=== PATIENT | female | born 1935 | race Caucasian/White ===

== ENCOUNTER 2018-09-16 18:24 | Inpatient (IN) | payer OTHER ==
--- NOTE | 2018-09-16 18:50 | RAD REPORT ---
EXAM DESCRIPTION: CT - Ct Stroke Brain Wo Cont - 09/16/2018 6:37 pm CLINICAL HISTORY: aphasia COMPARISON: None TECHNIQUE: Computed axial tomography of the head was obtained. IV contrast was not requested. All CT scans are performed using dose optimization technique as appropriate and may include automated exposure control or mA/KV adjustment according to patient size. FINDINGS: An intracranial bleed is not seen . The ventricles are normal in caliber. Vascular calcifications No extra-axial fluid collection is noted. Moderate to marked low-density areas within periventricular , deep and subcortical white matter likely represent ischemic changes secondary to small vessel disea se. Fluid within the sinuses/ mastoids is not seen. IMPRESSION: No acute intracranial abnormality is seen. If patient's symptoms persist MRI of the bra in would be recommended. Joe from the emergency room notified 6:45 p.m. September 16, 2018
--- NOTE | 2018-09-16 19:07 | RAD REPORT ---
EXAM DESCRIPTION: Melony Single View09/16/2018 6:50 pm CLINICAL HISTORY: Chest pain COMPARISON: None FINDINGS: The lungs appear clear of acute infiltrate. The heart is mildly enlarged. Pacemaker leads are in place. IMPRESSION: No acute abnormalities displayed
[2018-09-16 19:16] LABS: Absolute Monocytes 0.5 K/uL (0.1-1.3); Absolute Neutrophil 9.4 K/uL (1.8-8.0); Basophils % 0.8 % (0-1.3); Eosinophils % 0.7 % (0-4.4); Hematocrit 26.9 % (36.0-45.0); Lymphocytes % 8.9 % (15.3-44.8); MPV 8.1 fL (7.6-11.3); Monocytes % 4.8 % (3.3-12.3); RBC Red Blood Cell Count 2.86 M/uL (3.86-4.86)
[2018-09-16 19:27] LABS: Potassium 4.3 mmol/L (3.5-5.1)
[2018-09-16 19:29] LABS: Protime INR 0.97
--- NOTE | 2018-09-16 21:02 | RAD REPORT ---
EXAM DESCRIPTION: CTHead angio09/16/2018 8:32 pm CLINICAL HISTORY: Right-sided weakness /aphasia COMPARISON: None TECHNIQUE: CT angiogram of the head was obtained. 3D MIPS reconstruction performed. All CT scans are performed using dose optimization technique as appropriate and may include automated exposure control or mA/KV adjustment according to patient size. FINDINGS: Coarse calcifications are present within the distal internal carotid arteries bilaterally. The basilar, anterior cerebral, middle cerebral and posterior cerebral arteries are normal caliber. A n aneurysm is not seen. A significant stenosis is not noted. IMPRESSION: A significant stenosis/ occlusion is not seen
--- NOTE | 2018-09-16 21:02 | RAD REPORT ---
EXAM DESCRIPTION: Mila Angio09/16/2018 8:28 pm CLINICAL HISTORY: Syncope Right-sided weakness /aphasia COMPARISON: None TECHNIQUE: 50 cc Isovue 370 was administered intravenously. 3D MIP reconstruction performed All CT scans are performed using dose optimization technique as appropriate and may include automated exposure control or mA/KV adjustment according to patient size. FINDINGS: Severe calcified plaque is present within the right carotid bulb. . Moderate plaque is present within the right external carotid artery. Mild plaque is present within common carotid and left internal carotid arteries. The left vertebral artery is dominant. Distal left vertebral artery is calcified. IMPRESSION: Severe stenosis right carotid bulb. NASCET criteria used. Mild 0-49% stenosis Moderate 50-69% stenosis Severe 70-99% stenosis
--- NOTE | 2018-09-16 21:55 | EDPHYS ---
Physician Documentation [facility] Name: Tony Proctor Age: 83 yrs Sex: Female : 1935 Arrival Date: 09/16/2018 Time: 18:25 Bed 5 Private MD: ED Physician Kavon Verde HPI: 09/16 18:28 This 83 yrs old Female presents to ER via Unassigned with complaints of S/S kdr of Possible Stroke, Fall Injury. 18:28 The patient's problem is reported as weakness, that is generalized, Per EMS family kdr reports episodes of right sided weakness and the patient had a transient episode of Right sided weakness during transport. It was completely resolved on arrival to the ED. She relates that she has been generally weak today. She has no other focal c/o at this time and has an NIH SS of ) on arrival. Onset: The symptoms/episode began/occurred at an unknown time. Duration: The episodes are intermittent. Context: the episode(s) was witnessed. The symptoms are alleviated by nothing. The symptoms are aggravated by moving head, changing position. Associated signs and symptoms: Pertinent positives: weakness. Severity of symptoms: At their worst the symptoms were mild moderate just prior to arrival, in the emergency department the symptoms are unchanged. The patient has experienced similar episodes in the past, several times, The patient states that she has had numerous falls today. States she gets weak and "crumples" to the floor. Historical: - Allergies: 18:42 Phenergan; aa5 - PMHx: 18:42 Myocardial infarction; TIA; Thyroid problem; aa5 - PSHx: 18:42 pacemaker; Hysterectomy; Thyroidectomy; aa5 - Immunization history:: Adult Immunizations up to date, Flu vaccine is up to date. - Ebola Screening: : No symptoms or risks identified at this time. - Social history:: Smoking status: Patient/guardian denies using tobacco, Patient/guardian denies using alcohol, street drugs. ROS: 18:28 Constitutional: Negative for fever, chills, and weight loss, Eyes: Negative for injury, kdr pain, redness, and discharge, ENT: Negative for injury, pain, and discharge, Neck: Negative for injury, pain, and swelling, Cardiovascular: Negative for chest pain, palpitations, and edema, Respiratory: Negative for shortness of breath, cough, wheezing, and pleuritic chest pain, Abdomen/GI: Negative for abdominal pain, nausea, vomiting, diarrhea, and constipation, Back: Negative for injury and pain, : Negative for injury, bleeding, discharge, and swelling, MS/Extremity: Negative for injury and deformity, Skin: Negative for injury, rash, and discoloration, Psych: Negative for depression, anxiety, suicide ideation, homicidal ideation, and hallucinations, Allergy/Immunology: Negative for hives, rash, and allergies, Endocrine: Negative for neck swelling, polydipsia, polyuria, polyphagia, and marked weight changes, Hematologic/Lymphatic: Negative for swollen nodes, abnormal bleeding, and unusual bruising. 18:28 Neuro: Positive for weakness, Patient states general but EMS/Family report right sided with some speech impairment . Exam: 18:28 Constitutional: This is a well developed, well nourished patient who is awake, alert, kdr and in no acute distress. Head/Face: Normocephalic, atraumatic. Eyes: Pupils equal round and reactive to light, extra-ocular motions intact. Lids and lashes normal. Conjunctiva and sclera are non-icteric and not injected. Cornea within normal limits. Periorbital areas with no swelling, redness, or edema. ENT: Nares patent. No nasal discharge, no septal abnormalities noted. Tympanic membranes are normal and external auditory canals are clear. Oropharynx with no redness, swelling, or masses, exudates, or evidence of obstruction, uvula midline. Mucous membranes moist. Neck: Trachea midline, no thyromegaly or masses palpated, and no cervical lymphadenopathy. Supple, full range of motion without nuchal rigidity, or vertebral point tenderness. No Meningismus. Chest/axilla: Normal chest wall appearance and motion. Nontender with no deformity. No lesions are appreciated. Cardiovascular: Regular rate and rhythm with a normal S1 and S2. No gallops, murmurs, or rubs. Normal PMI, no JVD. No pulse deficits. Respiratory: Lungs have equal breath sounds bilaterally, clear to auscultation and percussion. No rales, rhonchi or wheezes noted. No increased work of breathing, no retractions or nasal flaring. Abdomen/GI: Soft, non-tender, with normal bowel sounds. No distension or tympany. No guarding or rebound. No evidence of tenderness throughout. Back: No spinal tenderness. No costovertebral tenderness. Full range of motion. Skin: Warm, dry with normal turgor. Normal color with no rashes, no lesions, and no evidence of cellulitis. She has minor abrasions on her legs MS/ Extremity: Pulses equal, no cyanosis. Neurovascular intact. Full, normal range of motion. Neuro: Awake and alert, GCS 15, oriented to person, place, time, and situation. Cranial nerves II-XII grossly intact. Motor strength 5/5 in all extremities. Sensory grossly intact. Cerebellar exam normal. Normal gait. Psych: Awake, alert, with orientation to person, place and time. Behavior, mood, and affect are within normal limits. 21:55 Radiologist reports: right bulb stenosis. no acute findings on CT. ps1 Vital Signs: 18:35 BP 103 / 76; Pulse 77; Resp 16 S; Temp 97.7(O); Pulse Ox 100% on R/A; Pain 6/10; aa5 19:00 BP 139 / 57; Pulse 74; Resp 15; Pulse Ox 99% ; rr5 19:35 BP 152 / 51; Pulse 77; Resp 12; Pulse Ox 98% ; rr5 20:30 BP 141 / 70; Pulse 75; Resp 16; Pulse Ox 99% ; rr5 21:30 BP 160 / 65; Pulse 79; Resp 17; Pulse Ox 99% ; rr5 22:30 BP 160 / 57; Pulse 92; Resp 19; Pulse Ox 98% ; rr5 23:30 BP 152 / 63; Pulse 100; Resp 17; Pulse Ox 99% ; rr5 03/07 00:00 BP 163 / 60; Pulse 87; Resp 17; Temp 98; Pulse Ox 100% ; rr5 NIH Stroke Scale Scores: 0306 18:25 NIHSS Score: 0 aa5 18:28 NIHSS Score: 0 kdr MDM: 18:28 Data reviewed: vital signs, nurses notes. kdr 19:43 ED course: patient signed out to me at shift change by Dr. Verde. NIH 0. Reported ps1 syncope vs seizure vs stroke vs Marquise's. Reportedly slumped over and appeared to become syncopal then had aphasia and right UE weakness now completely resolved. TPA not given 2/2 improving NIH. 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 . 19:52 Patient medically screened. ps1 20:09 ED course: Notified that patient has a pacemaker that is not compatible with MRI. Will ps1 order CTA head and neck. . 09/16 18:32 Order name: Basic Metabolic Panel; Complete Time: 19:52 09/16 18:32 Order name: CBC with Diff; Complete Time: 19:52 09/16 18:32 Order name: Protime (+inr); Complete Time: 19:52 09/16 18:32 Order name: Ptt, Activated; Complete Time: 19:52 09/16 18:32 Order name: CT Stroke Brain w/o Contrast; Complete Time: 19:00 09/16 18:32 Order name: Stroke CXR 1 View; Complete Time: 19:52 09/16 18:32 Order name: EKG; Complete Time: 18:33 09/16 18:32 Order name: Accucheck; Complete Time: 18:33 09/16 19:39 Order name: MRA Head Wo Cont EDMS 09/16 19:39 Order name: Brain W/Wo Cont EDMS 09/16 19:39 Order name: MRA Neck W/Wo Cont EDMS 09/16 20:12 Order name: CT Neck Angio; Complete Time: 21:18 ps1 09/16 20:12 Order name: CT Head Angio; Complete Time: 21:18 ps1 09/16 18:32 Order name: Cardiac monitoring; Complete Time: 18:41 09/16 18:32 Order name: EKG - Nurse/Tech; Complete Time: 19:01 09/16 18:32 Order name: IV Saline Lock; Complete Time: 18:41 09/16 18:32 Order name: Labs collected and sent; Complete Time: 18:41 09/16 18:32 Order name: NPO; Complete Time: 18:41 09/16 18:32 Order name: O2 Per Protocol; Complete Time: 18:41 09/16 18:32 Order name: O2 Sat Monitoring; Complete Time: 18:41 09/16 18:32 Order name: Stroke Swallow Screen; Complete Time: 19:01 aa5 Administered Medications: No medications were administered Point of Care Testing: Blood Glucose: 18:33 Blood Glucose: 144 mg/dL; bp Ranges: Critical Glucose Levels:Adult <50 mg/dl or >400 mg/dl <40 mg/dl or >180 mg/dl Disposition: 09/16/18 21:55 Hospitalization ordered by Fransico Thurston for Inpatient Admission. Preliminary diagnosis is TIA. - Bed requested for Telemetry/MedSurg (Inpatient). - Status is Inpatient Admission. rr5 - Condition is Stable. - Problem is new. - Symptoms are resolved. UTI on Admission? No NIH Stroke Scale - NIH Stroke Score Date: 09/16/2018 Time: 18:25 Total Score = 0 1a. Level of Consciousness (LOC) - 0(Alert) 1b. Level of Consciousness (LOC) (Year \\T\\ Age) - 0(Both) 1c. LOC Commands (Open \\T\\ Closes Eyes/Protohistorian) - 0(Both) 2. Best Gaze (Lateral Gaze Paresis) - 0(Normal) 3. Visual Field Loss - 0(No visual loss) 4. Facial Palsy - 0(Normal) 5a. Left Arm: Motor (10-second hold) - 0(No drift) 5b. Right Arm: Motor (10-second hold) - 0(No drift) 6a. Left Leg: Motor (5-second hold - always test supine) - 0(No drift) 6b. Right Leg: Motor (5-second hold - always test supine) - 0(No drift) 7. Limb Ataxia (finger/nose \\T\\ heel/ryan - test with eyes open) - 0(Absent) 8. Sensory Loss (pinprick arms/legs/face) - 0(Normal) 9. Best Language: Aphasia (description/naming/reading) - 0(No aphasia) 10. Dysarthria (speech clarity - read or repeat words) - 0(Normal) 11. Extinction and Inattention (visual/tactile/auditory/spatial/personal) - 0(No abnormality) Initials: aa5 NIH Stroke Scale - NIH Stroke Score Date: 09/16/2018 Time: 18:28 Total Score = 0 1a. Level of Consciousness (LOC) - 0(Alert) 1b. Level of Consciousness (LOC) (Year \\T\\ Age) - 0(Both) 1c. LOC Commands (Open \\T\\ Closes Eyes/Protohistorian) - 0(Both) 2. Best Gaze (Lateral Gaze Paresis) - 0(Normal) 3. Visual Field Loss - 0(No visual loss) 4. Facial Palsy - 0(Normal) 5a. Left Arm: Motor (10-second hold) - 0(No drift) 5b. Right Arm: Motor (10-second hold) - 0(No drift) 6a. Left Leg: Motor (5-second hold - always test supine) - 0(No drift) 6b. Right Leg: Motor (5-second hold - always test supine) - 0(No drift) 7. Limb Ataxia (finger/nose \\T\\ heel/ryan - test with eyes open) - 0(Absent) 8. Sensory Loss (pinprick arms/legs/face) - 0(Normal) 9. Best Language: Aphasia (description/naming/reading) - 0(No aphasia) 10. Dysarthria (speech clarity - read or repeat words) - 0(Normal) 11. Extinction and Inattention (visual/tactile/auditory/spatial/personal) - 0(No abnormality) Initials: kdr Signatures: Dispatcher [employer] EDMO Kavon Verde MD MD kdr Leigha Downs RN RN aa5 Debi Hein RN RN cg Bryan Moore MD MD ps1 Parish Stewart RN RN rr5 Corrections: (The following items were deleted from the chart) 19:39 19:02 MR STROKE PROTOCOL+MRI.RAD.BRZ ordered. [facility] 23:51 21:55 Hospitalization Ordered by Fransico Thurston MD for Inpatient Admission. cg Preliminary diagnosis is TIA. Bed requested for Telemetry/MedSurg (Inpatient). Status is Inpatient Admission. Condition is Stable. Problem is new. Symptoms are resolved. UTI on Admission? No. ps1 09/17 01:41 06 23:51 09/16/2018 21:55 Hospitalization Ordered by Fransico Thurston MD for rr5 Inpatient Admission. Preliminary diagnosis is TIA. Bed requested for Telemetry/MedSurg (Inpatient). Status is Inpatient Admission. Condition is Stable. Problem is new. Symptoms are resolved. UTI on Admission? No. cg
--- NOTE | 2018-09-16 21:55 | ER ---
Nurse's Notes [facility] Name: Tony Proctor Age: 83 yrs Sex: Female : 1935 Arrival Date: 09/16/2018 Time: 18:25 Bed 5 Private MD: Diagnosis: TIA Presentation: 09/16 18:25 Presenting complaint: Patient states: "I have fallen several times today about 5 to 6 aa5 times". Pt states "When I fell my knees just gave out and I fell straight to my butt and I couldn't get up, I had to crawl through the house". EMS reports pt had right sided paralysis and expressive aphasia at 1730 and resolved prior to scene arrival, pt also had bowel incontinence during episode. 18:25 Acuity: CARMELINA 2 aa5 18:25 Transition of care: patient was not received from another setting of care. aa5 18:25 Method Of Arrival: EMS: [facility] aa5 18:35 The patients blood glucose was checked before arriving to the hospital and was found to aa5 be normal. Onset of symptoms was September 16, 2018. Risk Assessment: Do you want to hurt yourself or someone else? Patient reports no desire to harm self or others. Initial Sepsis Screen: Does the patient meet any 2 criteria? No. Patient's initial sepsis screen is negative. Does the patient have a suspected source of infection? No. Patient's initial sepsis screen is negative. Care prior to arrival: IV initiated. 20 GA, in the left antecubital area, Glucose check: 110. 19:30 No acute neurological deficit is noted. rr5 Triage Assessment: 19:00 The onset of the patients symptoms was September 16, 2018 at 17:30. rr5 19:00 General: Appears in no apparent distress. comfortable, Behavior is calm, cooperative, rr5 appropriate for age. Stroke Activation: Symptom onset < 3 hours Physician: Stroke Attending; Name: ; Notified At: ; Arrived At: Physician: Chief Stroke Resident; Name: ; Notified At: ; Arrived At: Physician: Stroke Resident; Name: ; Notified At: ; Arrived At: Physician: ED Attending; Name: ; Notified At: ; Arrived At: Physician: ED Resident; Name: ; Notified At: ; Arrived At: Historical: - Allergies: 18:42 Phenergan; aa5 - PMHx: 18:42 Myocardial infarction; TIA; Thyroid problem; aa5 - PSHx: 18:42 pacemaker; Hysterectomy; Thyroidectomy; aa5 - Immunization history:: Adult Immunizations up to date, Flu vaccine is up to date. - Ebola Screening: : No symptoms or risks identified at this time. - Social history:: Smoking status: Patient/guardian denies using tobacco, Patient/guardian denies using alcohol, street drugs. Screenin:00 Abuse screen: Denies threats or abuse. Denies injuries from another. Nutritional rr5 screening: No deficits noted. Tuberculosis screening: No symptoms or risk factors identified. Fall Risk Fall in past 12 months (25 points). IV access (20 points). Total Nicolas Fall Scale indicates Low Risk Score (25-44 pts). Fall prevention measures have been instituted. Side Rails Up X 2 Frequent Obs/Assesments occuring Family Present and informed to notify staff if they need to leave bedside As available Patient and Family Educated on Fall Prevention Program and strategies. Assessment: 18:25 VAN Scoring: Arm Drift: Patients demonstrates NO arm weakness. Patient is VAN Negative. aa5 18:25 General: Appears comfortable, Behavior is calm, cooperative. Pain: Complains of pain in aa5 neck and back Pain does not radiate. Pain currently is 6 out of 10 on a pain scale. Quality of pain is described as aching, Pain began today Is continuous. Neuro: Level of Consciousness is awake, alert, obeys commands, Oriented to person, place, time, situation, Cutting Department Supervisor are weak bilaterally Moves all extremities. Speech is normal, Facial symmetry appears normal, Pupils are PERRLA, Denies paresthesias numbness Reports generalized weakness since this morning. . Cardiovascular: Heart tones S1 S2 present Rhythm is sinus rhythm. Respiratory: Airway is patent Respiratory effort is even, unlabored, Respiratory pattern is regular, symmetrical. GI: No signs and/or symptoms were reported involving the gastrointestinal system. : Reports bowel incontinence episode today. EENT: No signs and/or symptoms were reported regarding the EENT system. Derm: Skin is pink, warm \\T\\ dry. Small skin tear noted to right ryan, no active bleeding noted. Musculoskeletal: Range of motion: intact in all extremities. 18:28 Reassessment: Pt taken to CT via stretcher . aa5 18:42 T-PA (Activase) Screening: Indications: No evidence of intracranial hemorrhage or CT of aa5 head and no evidence of peripheral hemorrhage or recent CVA: Yes. 18:47 The patient has not been NPO before screening. The patient is alert, and able to follow aa5 commands. The patient does not exhibit slurred or garbled speech. The patient is not exhibiting difficulty speaking. The patient does not exhibit difficulty understanding words. The patient is able to swallow own secretions with no drooling or need for suction. Patient tolerated one teaspoon of water. No drooling, immediate coughing, gurgling, or clearing of the throat was noted. The patient tolerated 90mL of water. No drooling, immediate coughing, gurgling, or clearing of the throat was noted. The patient passed the bedside swallow screening. Oral medications may be given as ordered. Contact Physician for further diet orders. Provider notified of bedside swallow screening results: Kavon Verde MD. 20:10 Reassessment: [facility] staff verified for the pacemaker provider. patient cannot rr5 proceed to MRI, pacemaker is not compatible. ED provider aware. 21:45 Reassessment: Patient appears in no apparent distress at this time. Patient is alert, rr5 oriented x 3, equal unlabored respirations, skin warm/dry/pink. no complaints made. patient is for transfer to other facility the patient and operator supply agreed. Patient states feeling better. Patient states symptoms have improved. 22:30 Reassessment: Patient appears in no apparent distress at this time. Patient is alert, rr5 oriented x 3, equal unlabored respirations, skin warm/dry/pink. awaiting for room assignment, no complaints made. 23:30 Reassessment: Patient appears in no apparent distress at this time. dr. hurst rr5 informed diaper changed black tarry stool noted. 09/17 00:55 Reassessment: Patient appears in no apparent distress at this time. Patient is alert, rr5 oriented x 3, equal unlabored respirations, skin warm/dry/pink. no complaints made. asleep on bed comfortably. Vital Signs: 09/16 18:35 BP 103 / 76; Pulse 77; Resp 16 S; Temp 97.7(O); Pulse Ox 100% on R/A; Pain 6/10; aa5 19:00 BP 139 / 57; Pulse 74; Resp 15; Pulse Ox 99% ; rr5 19:35 BP 152 / 51; Pulse 77; Resp 12; Pulse Ox 98% ; rr5 20:30 BP 141 / 70; Pulse 75; Resp 16; Pulse Ox 99% ; rr5 21:30 BP 160 / 65; Pulse 79; Resp 17; Pulse Ox 99% ; rr5 22:30 BP 160 / 57; Pulse 92; Resp 19; Pulse Ox 98% ; rr5 23:30 BP 152 / 63; Pulse 100; Resp 17; Pulse Ox 99% ; rr5 03 00:00 BP 163 / 60; Pulse 87; Resp 17; Temp 98; Pulse Ox 100% ; rr5 NIH Stroke Scale Scores: 09/16 18:25 NIHSS Score: 0 aa5 18:28 NIHSS Score: 0 kdr ED Course: 18:25 Patient arrived in ED. ds1 18:25 Arm band placed on Patient placed in an exam room, on a stretcher. aa5 18:25 Patient has correct armband on for positive identification. Placed in gown. Bed in low aa5 position. Side rails up X2. 18:27 Initial lab(s) drawn, by ED staff, sent to lab. aa5 18:27 No provider procedures requiring assistance completed. Maintain EMS IV. aa5 18:28 Kavon Verde MD is Attending Physician. kdr 18:31 Charles Benites, BRANDY is Primary Nurse. bp 18:36 Triage completed. aa5 18:37 CT Stroke Brain w/o Contrast In Process Unspecified. EDMS 18:40 Primary Nurse role handed off by Charles Benites, BRANDY aa5 18:40 Leigha Downs, BRANDY is Primary Nurse. aa5 18:51 Stroke CXR 1 View In Process Unspecified. EDMS 19:09 Report given to Parish RN and Jen RN. aa5 20:[address] jg6 20:29 CT completed. Patient tolerated procedure well. Patient moved back from CT. nj 20:29 CT Neck Angio In Process Unspecified. EDMS 20:29 CT Head Angio In Process Unspecified. EDMS 21:55 Fransico Thurston MD is Hospitalizing Provider. ps1 09/17 00:30 Patient admitted, IV remains in place. intact, No redness/swelling at site. rr5 Administered Medications: No medications were administered Point of Care Testing: Blood Glucose: 09/16 18:33 Blood Glucose: 144 mg/dL; bp Ranges: Intake: 23:25 dr. hurst aware black tarry stool rr5 Output: 23:25 Other: 1 (Diapers) ; Total: 0ml. rr5 23:25 dr. hurst aware black tarry stool rr5 Outcome: 21:55 Decision to Hospitalize by Provider. ps1 09/17 00:29 Admitted to Med/surg accompanied by tech, via stretcher, room 231, with chart, Report rr5 called to brett Condition: stable Instructed on the need for admit. 01:41 Patient left the ED. rr5 NIH Stroke Scale - NIH Stroke Score Date: 09/16/2018 Time: 18:25 Total Score = 0 1a. Level of Consciousness (LOC) - 0(Alert) 1b. Level of Consciousness (LOC) (Year \\T\\ Age) - 0(Both) 1c. LOC Commands (Open \\T\\ Closes Eyes/Geology Scientist) - 0(Both) 2. Best Gaze (Lateral Gaze Paresis) - 0(Normal) 3. Visual Field Loss - 0(No visual loss) 4. Facial Palsy - 0(Normal) 5a. Left Arm: Motor (10-second hold) - 0(No drift) 5b. Right Arm: Motor (10-second hold) - 0(No drift) 6a. Left Leg: Motor (5-second hold - always test supine) - 0(No drift) 6b. Right Leg: Motor (5-second hold - always test supine) - 0(No drift) 7. Limb Ataxia (finger/nose \\T\\ heel/ryan - test with eyes open) - 0(Absent) 8. Sensory Loss (pinprick arms/legs/face) - 0(Normal) 9. Best Language: Aphasia (description/naming/reading) - 0(No aphasia) 10. Dysarthria (speech clarity - read or repeat words) - 0(Normal) 11. Extinction and Inattention (visual/tactile/auditory/spatial/personal) - 0(No abnormality) Initials: aa5 NIH Stroke Scale - NIH Stroke Score Date: 09/16/2018 Time: 18:28 Total Score = 0 1a. Level of Consciousness (LOC) - 0(Alert) 1b. Level of Consciousness (LOC) (Year \\T\\ Age) - 0(Both) 1c. LOC Commands (Open \\T\\ Closes Eyes/Geology Scientist) - 0(Both) 2. Best Gaze (Lateral Gaze Paresis) - 0(Normal) 3. Visual Field Loss - 0(No visual loss) 4. Facial Palsy - 0(Normal) 5a. Left Arm: Motor (10-second hold) - 0(No drift) 5b. Right Arm: Motor (10-second hold) - 0(No drift) 6a. Left Leg: Motor (5-second hold - always test supine) - 0(No drift) 6b. Right Leg: Motor (5-second hold - always test supine) - 0(No drift) 7. Limb Ataxia (finger/nose \\T\\ heel/ryan - test with eyes open) - 0(Absent) 8. Sensory Loss (pinprick arms/legs/face) - 0(Normal) 9. Best Language: Aphasia (description/naming/reading) - 0(No aphasia) 10. Dysarthria (speech clarity - read or repeat words) - 0(Normal) 11. Extinction and Inattention (visual/tactile/auditory/spatial/personal) - 0(No abnormality) Initials: kdr Signatures: Dispatcher [employer] EDMS Kavon Verde MD MD kdr Natalie Pino ds1 Leigha Downs, RN RN aa5 Neo Longo Brian, RN RN bp Bryan Moore MD MD ps1 Martina Hein6 Parish Stewart RN RN rr5
[2018-09-17] MEDS ORDERED: SODIUM CHLORIDE 0.9% 10ML INJ IV PRN (00:59)
[2018-09-17] MEDS ORDERED: ONDANSETRON 4 MG/2 ML VIAL IV PRN (00:59)
[2018-09-17] MEDS: NA CHLORIDE 0.9% 1,000 ML IV SCH ×3 (01:27→20:59)
[2018-09-17 01:36] VITALS: BMI 19.1
[2018-09-17] MEDS: HYDRALAZINE HCL 10 MG TABLET PO PRN ×2 (03:29→21:16)
--- NOTE | 2018-09-17 04:39 | P.HP ---
Certification for Inpatient Patient admitted to: Observation With expected LOS: <2 Midnights Practitioner: I am a practitioner with admitting privileges, knowledge of patient current condition, hospital course, and medical plan of care. Services: Services provided to patient in accordance with Admission requirements found in Title 42 Section 412.3 of the Code of Federal Regulations Patient History Date of Service: 09/17/18 Reason for admission: recurrent fall, possible TIA, melena History of Present Illness: Ms Proctor is an 83 years old woman with history of HTN, TIA, who report that she fell about 5-6 times today, unable to state wether she loss her conscious or not, she is mildly confused. She states that her right knee gave up. No history of fever or chills. When EMS arrived, found the patient with right side hemiparesis and expressive aphasia, but all her symptoms were resolved before arrive to ED. CT/CTA head shows no acute abnormalities. CTA neck report severe stenosis on right carotid bulb. Also during her stay in ED it was found that she has melena. Her hgb is 9.3 mg/dl, last value documented was in 2014 about 13.2 mg/dl. Allergies promethazine [From Phenergan] Allergy (Verified 09/17/18 01:42) Itching/Hives/Rash Home medications list reviewed: Yes - Past Medical/Surgical History Has patient received pneumonia vaccine in the past: Yes Diabetic: No -: HTN -: [place] -: TIA -: Hyperthyroidism -: Pacemaker placement -: Hysterectomy -: Thyroidectomy - Family History Mother -: Cancer Notes: colon CA Father -: Cancer Notes: liver CA son -: Cancer Notes: liver CA - Social History Smoking Status: Never smoker Alcohol use: No CD- Drugs: No Caffeine use: Yes Place of Residence: Home Review of Systems 10-point ROS is otherwise unremarkable Physical Examination - Vital Signs Temperature: 98.5 F Blood Pressure: 179/74 Pulse: 85 Respirations: 18 Pulse Ox (%): 100 - Physical Exam General: Alert, In no apparent distress, Confused HEENT: Atraumatic, PERRLA, Mucous membr. moist/pink, EOMI, Sclerae nonicteric Neck: Supple, 2+ carotid pulse no bruit, No LAD, Without JVD or thyroid abnormality Respiratory: Clear to auscultation bilaterally, Normal air movement Cardiovascular: Regular rate/rhythm, Normal S1 S2 Gastrointestinal: Normal bowel sounds, No tenderness Musculoskeletal: No tenderness Integumentary: No rashes Neurological: Normal speech, Normal strength at 5/5 x4 extr, Normal tone, Normal affect Lymphatics: No axilla or inguinal lymphadenopathy - Studies Laboratory Data (last 24 hrs) 09/16/18 19:02: PT 11.5, INR 0.97, APTT 26.7 09/16/18 19:02: WBC 11.1 H, Hgb 9.3 L, Hct 26.9 L, Plt Count 518 H 09/16/18 19:02: Sodium 137, Potassium 4.3, BUN 43 H, Creatinine 1.35 H, Glucose 122 H Assessment and Plan - Problems (Diagnosis) (1) Recurrent falls Current Visit: Yes Status: Acute (2) TIA (transient ischemic attack) Current Visit: Yes Status: Acute (3) GIB (gastrointestinal bleeding) Current Visit: Yes Status: Acute (4) CKD (chronic kidney disease) Current Visit: Yes Status: Acute Qualifiers: Chronic kidney disease stage: stage 3 (moderate) Qualified Code(s): N18.3 - Chronic kidney disease, stage 3 (moderate) (5) Anemia Current Visit: Yes Status: Acute Qualifiers: Anemia type: unspecified type Qualified Code(s): D64.9 - Anemia, unspecified - Plan The patient will be admitted to the hospital due to recurrent falls, possible TIA, unfortunately the patient has pacemaker placement, not able to perform MRI. She has also melena with anemia. Will Keep the patient NPO, order IV fluids , IV protonix, (hold anticoagulants and antiplatelets until GI evaluation. Consult Dr Ross and Dr Cullen. - Advance Directives Does patient have a Living Will: Yes Does patient have a Durable POA for Healthcare: Yes - Code Status/Comfort Care Code Status Assessed: Yes Code Status: Full Code
--- NOTE | 2018-09-17 05:54 | EKG ---
Test Date: 2018-09-16 Test Time: 18:44:31 Hris Administrator: BARRERA MEASUREMENT RESULTS: Intervals: Rate: 83 MO: 170 QRSD: 68 QT: 382 QTc: 448 [place]: P: 83 MO: 170 QRS: 50 T: 73 INTERPRETIVE STATEMENTS: Normal sinus rhythm Normal ECG Compared to ECG 06/15/2002 08:54:00 No significant changes Electronically Signed On 09-17-18 05:53:22 [employer]ARCH MANGLE TENDER by César Roberts
[2018-09-17 06:59] LABS: Absolute Lymphocytes (CBC) 1.4 K/uL (0.7-4.9); Absolute Monocytes 0.6 K/uL (0.1-1.3); Absolute Neutrophil 6.7 K/uL (1.8-8.0); Basophils % 1.2 % (0-1.3); Eosinophils % 2.3 % (0-4.4); Hematocrit 25.6 % (36.0-45.0); Lymphocytes % 15.4 % (15.3-44.8); MPV 8.1 fL (7.6-11.3); Monocytes % 6.6 % (3.3-12.3); RBC Red Blood Cell Count 2.71 M/uL (3.86-4.86)
[2018-09-17 07:04] LABS: Potassium 3.8 mmol/L (3.5-5.1)
--- NOTE | 2018-09-17 08:39 | RAD REPORT ---
EXAM DESCRIPTION: US - CP - 09/17/2018 8:27 am CLINICAL HISTORY: Carotid stenosis COMPARISON: CT angio neck September 16, 2018 TECHNIQUE: Real-time sonographic evaluation of both carotid systems was performed. Gomez scale and Do ppler interrogation were performed with waveform tracing bilaterally. FINDINGS: Normal high resistance waveforms are noted in both external carotid arteries. The common c arotid arteries and internal carotid arteries show normal low resistance waveforms. Patient shows very pronounced calcified plaquing change in the right carotid bulb extending into the proximal portions of the right internal carotid artery. Significant luminal narrowing is evident on v isual inspection. Calcified plaquing in the left carotid bulb is present without significant luminal narrowing. No dissection is identified. Right internal carotid artery peak systolic velocity reaches 213 cm/second with a 53 cm/second end-diastolic velocity. A 2.5 right-side ICA/CCA ratio was obtained . Right external carotid velocity reached 285 cm/second although an external stenosis is generally no t clinically significant. Left-sided carotid peak velocity reaches 117 cm/seconds. A 1.1 left ICA/ CC A ratio was obtained. Left external carotid velocity is elevated at 222 cm/second. Antegrade flow seen in both vertebral arteries. Velocity values and ratios were recorded and are retained in the patient's imaging records. IMPRESSION: Significant densely calcified plaquing changes in the right carotid bulb and proximal IC A. Stenosis is estimated at 80- 90%. Left-sided carotid bulb calcified plaquing changes not causing significant stenosis. Bilateral external carotid stenoses. External carotid stenoses are generally not clinically significa nt.
[2018-09-17] MEDS ORDERED: KCL 20 MEQ/100 mL IVPB 20 MEQ/100 ML BAG IV SCH (09:00)
[2018-09-17] MEDS: PANTOPRAZOLE 40 MG INJ IVP SCH ×2 (09:03→21:15)
--- NOTE | 2018-09-17 12:00 | ECHO ---
HEIGHT: 5 ft 3 in WEIGHT: 107 lb 12.8 oz DATE OF STUDY: 09/17/[address]: Fransico Barahona MD 2-DIMENSIONAL: YES M.MODE: YES DOPPLER: YES COLOR FLOW: YES TDS: NO PORTABLE: NO DEFINITY: NO BUBBLE STUDY: NO DIAGNOSIS: RECURRENT FALL; HYPERTENSION CARDIAC HISTORY: CATHERIZATION: NO SURGERY: NO PROSTHETIC VALVE: NO PACEMAKER: YES MEASUREMENTS (cm) DIASTOLIC (NORMALS) SYSTOLIC (NORMALS) IVSd 0.8 (0.6-1.2) LA Diam 2.9 (1.9-4.0) LVEF 51% LVIDd 3.6 (3.5-5.7) LVIDs 2.7 (2.0-3.5) %FS 25% LVPWd 1.0 (0.6-1.2) Ao Diam 2.7 (2.0-3.7) 2 DIMENSIONAL ASSESSMENT: RIGHT ATRIUM: NORMAL LEFT ATRIUM: NORMAL RIGHT VENTRICLE: NORMAL LEFT VENTRICLE: NORMAL TRICUSPID VALVE: NORMAL MITRAL VALVE: MITRAL ANNULAR CALCIFICATION PULMONIC VALVE: NORMAL AORTIC VALVE: SCLEROSIS PERICARDIAL EFFUSION: NONE AORTIC ROOT: NORMAL LEFT VENTRICULAR WALL MOTION: NORMAL DOPPLER/COLOR FLOW: TRACE TRICUSPID REGURGITATION. COMMENTS: NORMAL LEFT VENTRICULAR SIZE AND FUNCTION. NO WALL MOTION ABNORMALITY. MITRAL ANNULAR CALCIFICATION. AORTIC SCLEROSIS. TECHNOLOGIST: Darek TAI
[2018-09-17] MEDS ORDERED: ASPIRIN EC 81 MG TAB PO SCH (16:34)
[2018-09-17] MEDS ORDERED: CLOPIDOGREL 75 MG TABLET PO SCH (16:34)
--- NOTE | 2018-09-17 18:42 | PN ---
Date of Progress Note: 09/17/2018 Subjective: The patient seen and examined, chart reviewed and case discussed with RN and Dr. Cullen. The patient reports weakness in her left leg that seems to give out. Denies any chronic back pain or recent trauma. The patient does use a walker at home. Medication: List reviewed. Code Status: Full. Objective: Vital Signs: Temperature 98, heart rate 82, blood pressure 158/69, respirations 18, O2 98% on room air. General: awake, alert, oriented x3. Elderly female, ill-appearing. CV: S1, S2. Regular rate and rhythm. Peripheral pulses present. Respiratory: Clear to auscultation bilaterally. No wheezing or stridor. No use of accessory muscles Gastrointestinal: Abdomen is soft, nontender, nondistended. Positive bowel sounds. No guarding or rigidity. Extremities: No clubbing, cyanosis, or edema. Neuro: Cranial nerves 2 through 12 intact grossly. No focal neurological deficit. Speech is normal. Strength is symmetric in bilateral upper and lower extremities. Sensation intact to light touch. Laboratory Data: WBC 9, H and H 9.1, 25.6; platelets 493. Sodium 141, potassium 3.8, chloride 108, CO2 26, BUN 34, creatinine 1.19, glucose 101, calcium 8.4. Occult blood was negative. Echocardiogram, EF 51%. No wall motion abnormality. Carotid artery ultrasound shows densely calcified plaquing changes in the right carotid bulb and proximal ICA stenosis estimated at 80-90% . Left-sided carotid bulb calcified plaquing changes not causing significant stenosis. Bilateral external carotid stenosis, external carotid stenosis, generally not clinically significant. CT angio of the neck shows severe stenosis of the right carotid bulb. CT angio of the head shows no significant stenosis or occlusion. CT scan of the brain shows no acute intracranial abnormality. The patient unable to have MRI done due to her pacemaker. Assessment And Plan: An 83-year-old female with: 1. Recurrent falls, likely has lumbar radiculopathy. Unfortunately, due to her pacemaker, we are unable to do an MRI. We will obtain Neurology consultation, place on fall precautions and have PT work with her. 2. Transient ischemic attack. CT scan of the brain does not show any acute abnormalities. Unable to do MRI of the brain. 3. Melena. The patient had melanotic stool in transit to the hospital in the ambulance however heme occult is negative and subsequent BM was normal. The patient's hemoglobin is stable. GI has been consulted. We will transfuse for hemoglobin less than 7. Add PPI. 4. Acute kidney injury. Creatinine is now normalized. Continue IV fluids. The patient does have some chronic kidney disease stage III. 5. Severe right carotid bulb stenosis. We will discuss further with Neurology. The patient will likely need Neurosurgical evaluation and stent placement versus carotid endarterectomy. Echocardiogram showed normal ejection fraction. There was no wall motion abnormality. Will start on ASA and plavix given her symptoms of TIA. Will monitor HH closely due to episode of melena yesterday. Plan: Pending neuro eval, the patient will likely need placement to a usp facility versus home health with PT. The patient does take care of her , who is 89 years of age and deaf, requires significant assistance. The patient does have good social support in the area. Her daughters and son lives close by. ADDENDUM: Spoke with transfer center [facility] vascular surgeon. He recommends outpt f/up and does not recommend a transfer at this time for carotid stenosis. /FANY Voice ID: [id number] Report ID: [id number] COLT
[2018-09-17] MEDS: ATORVASTATIN 40 MG TAB PO SCH (21:16)
[2018-09-18] MEDS ORDERED: TRAMADOL HCL 50 MG TAB PO ONE (01:10)
[2018-09-18] MEDS: NA CHLORIDE 0.9% 1,000 ML IV SCH ×2 (03:03→16:29)
[2018-09-18 06:28] LABS: Absolute Lymphocytes (CBC) 0.5 K/uL (0.7-4.9); Absolute Monocytes 0.3 K/uL (0.1-1.3); Absolute Neutrophil 11.8 K/uL (1.8-8.0); Basophils % 0.2 % (0-1.3); Eosinophils % 0.1 % (0-4.4); Hematocrit 21.8 % (36.0-45.0); Lymphocytes % 4.2 % (15.3-44.8); MPV 8.2 fL (7.6-11.3); Monocytes % 2.3 % (3.3-12.3); RBC Red Blood Cell Count 2.25 M/uL (3.86-4.86)
[2018-09-18 06:48] LABS: Potassium 4.2 mmol/L (3.5-5.1)
[2018-09-18 07:44] LABS: Blood Morphology Comment NOT SEEN (NOT SEEN); Platelet Estimate ADEQ; Urine White Blood Cell Casts OK
[2018-09-18] MEDS ORDERED: PANTOPRAZOLE 40 MG INJ IVP ONE (07:53)
[2018-09-18] MEDS ORDERED: PANTOPRAZOLE INJ 80 MG in NA CHLORIDE 0.9% 250 ML IV SCH (08:30)
[2018-09-18] MEDS ORDERED: ERYTHROMYCIN 500 MG in NA CHLORIDE 0.9% 100 ML IV ONE (08:34)
[2018-09-18] MEDS ORDERED: OCTREOTIDE 500 MCG in NA CHLORIDE 0.9% 500 ML IV SCH (09:00)
[2018-09-18] MEDS ORDERED: PROPOFOL 200 MG/20 ML VIAL IV ONE (11:07)
[2018-09-18] MEDS ORDERED: LIDOCAINE 1% MPF 5 ML VIAL ONE (11:07)
[2018-09-18] MEDS ORDERED: METOCLOPRAMIDE 10 MG/2mL INJ IV STA (11:10)
[2018-09-18] MEDS ORDERED: NA CHLORIDE 0.9% 1,000 ML ONE (11:40)
[2018-09-18] MEDS ORDERED: NA CHLORIDE 0.9% 500 ML ONE (11:40)
[2018-09-18] MEDS ORDERED: TRAMADOL HCL 50 MG TAB PO PRN (11:46)
[2018-09-18] MEDS ORDERED: EPINEPHRINE/PF 1 MG/ML AMP ONE (14:56)
--- NOTE | 2018-09-18 15:05 | EEG ---
CHART: [id number] TEST ID#: [id number] DATE OF STUDY: 09/17/18 THE EEG WAS RECORDED PORTABLE IN THE PATIENTS ROOM ON A 17 CHANNEL MACHINE. ELECTRODES WERE APPLIED IN THE USUAL MANNER USING THE INTERNATIONAL 10-20 SYSTEM. THE WAKING BACKGROUND RHYTHM IN THIS RECORD CONSISTS OF WELL DEVELOPED AND WELL ORGANIZED WAVES OF 8.5 HZ., MAXIMAL IN THE POSTERIOR HEAD REGIONS WHICH ATTENUATE NORMALLY WITH EYE OPENING. LOW-VOLTAGE 18-22 HZ ACTIVITY IS EXPRESSED IN THE FRONTAL REGIONS. THERE ARE NO FOCAL OR LATERALIZING FEATURES. NO EPILEPTIFORM ACTIVITY APPEARS. SLEEP DID NOT OCCUR. HYPERVENTILATION WAS NOT PREFORMED. PHOTIC STIMULATION PRODUCED POOR DRIVING BILATERALLY. IMPRESSION: NORMAL EEG FOR THE AGE OF THE PATIENT IN WAKE AND DROWSY STATE.
--- NOTE | 2018-09-18 15:15 | PN ---
Date of Progress Note: 09/18/2018 Subjective: The patient is seen and examined. Chart reviewed, and case discussed with RN and Dr. Ross. The patient did have episode of hematemesis overnight and another episode while I was interviewing her. Daughter at the bedside. The patient initially was reluctant for any scope when Dr. Ross had spoken to her yesterday. However, with the daughter present and with continued hematemesis, the patient is now agreeable for EGD. The patient was declined by [facility] for transfer by vascular surgeon due to her severe carotid stenosis. Dr. Blanco recommended outpatient followup. Medications: List reviewed. Code Status: Daughter states that the patient has out of hospital DNR and her wishes are for do not resuscitate. Code status has been changed. Objective: Vital signs: Temperature 98.4, heart rate 92, blood pressure 188/50 , respirations 16, O2 of 99% on room air. General: Awake, alert, oriented x3. An elderly female, frail, cachectic, BMI 19, ill-appearing. CV: S1, S2. Regular rate and rhythm. Peripheral pulses weak bilaterally. Respiratory: Moving air well bilaterally. No wheezing. Gastrointestinal: Abdomen is soft. Tenderness to palpation in the epigastric region. No rebound or guarding. Extremities: No clubbing, cyanosis, or edema. Neuro: Nonfocal. Laboratory Data: Sodium 145, potassium 4.2, chloride 116, CO2 of 20, BUN 33, creatinine 1.09, glucose 140, calcium 8. WBC 12.7, H and H 7.5 and 21.8, platelets 459, neutrophils 93.2. Assessment And Plan: An 83-year-old female with: 1. Recurrent falls, possibly due to lumbar radiculopathy. Unable to do MRI due to pacemaker. Appreciate Neurology input. 2. Transient ischemic attack. CT scan is negative. No focal neurological deficit. 3. Hematemesis and melena, acute gastrointestinal bleed. The patient will be going for esophagogastroduodenoscopy today. 4. Acute blood loss anemia. We will transfuse a unit of PRBC and monitor hemoglobin and hematocrit, secondary to above. 5. Acute kidney injury. Creatinine normalized. 6. Severe right carotid bulb stenosis. We will hold aspirin and Plavix due to gastrointestinal bleed. The patient was declined by [facility] vascular surgeon, recommending outpatient followup. No intervention at this time for carotid stenosis. We will discuss further with Neurology. We will continue high-dose statin. 7. Deep venous thrombosis prophylaxis with SCDs. No chemical anticoagulation due to gastrointestinal bleed. Transfer to ICU. Sandostatin drip, protonix drip. /FANY Voice ID: [id number] Report ID: [id number] COLT
[2018-09-18] MEDS: PANTOPRAZOLE INJ 80 MG in NA CHLORIDE 0.9% 250 ML IV SCH (18:32)
[2018-09-18] MEDS: OCTREOTIDE 500 MCG in NA CHLORIDE 0.9% 500 ML IV SCH (18:32)
--- NOTE | 2018-09-18 18:57 | CON ---
Consultation called because of possible transient ischemic attack. History Of Present Illness: Ms. Proctor is an 83-year-old patient with multiple medical problems inc luding hypertension, myocardial infarction, transient ischemic attack, hyperthyroidism, and who has a pacemaker, was brought in after multiple falls and episodic confusion. The patient was at her usual state of health on the when she became confused. There was right-sided weakness, inability to g et her words and thoughts out and that resulted also in multiple falls, reportedly sum of 6 falls in the 1 day on the 16 of September. At the time she was evaluated at [facility], her symptoms candelaria d already resolved. Her evaluation, however, showed with CT angiogram of her neck severe stenosis of the right carotid bulb. There was nonsignificant stenosis of the left side. Her head CT scan showe d no acute ischemic or hemorrhagic change, however, there was moderate to marked small-vessel ischemi c disease. Her EKG showed sinus rhythm and echocardiogram showed ejection fraction 51%, no significa nt stenosis. She is unable to get MRI of the brain due to having pacemaker. The patient is admitted to ICU for further management. Earlier today, she was ambulated with the help of Physical Therapy. During that time, she also had a transient right arm weakness as reportedly the right arm became fla ccid and within a few minutes the right arm returned back to a normal strength. The patient did have along with her other medical complaints melena, that is, upper GI blood and her hemoglobin and hematocrit from yesterday to today dropped from 9.1 down to 7.5. She was evaluated by the acct exec and found to have a bleeding duodenal ulcer. That was treated and she is now receiving a unit of packed red blood cells. Since the return to her baseline level of functioning, she has not had an additional episode of right -sided weakness or expressive aphasia or confusion. Past Medical History: As indicated above. Past Surgical History: Pacemaker placement, hysterectomy, and thyroidectomy. Allergies: PROMETHAZINE. Family History: Positive for cancer, colon cancer in her mother, liver cancer in father and liver ca ncer in son. Social History: No alcohol, tobacco, or IV drug use. The patient does drink caffeinated beverages. Medications: Norvasc 10 mg daily, Lipitor 40 mg at bedtime, Prozac 10 mg daily, Apresoline 10 mg darius ry 6 hours, Cozaar 100 mg daily, Lopressor 25 mg daily, octreotide acetate 500 mcg intravenously ever y 10 hours, Zofran 4 mg every 6 hours, pantoprazole 80 mg every 10 hours, [place] Thyroid 90 mg daily, Ultram 50 mg daily as needed. She did have aspirin and Plavix earlier and both the drugs have been held. Review of Systems: Indicated she has had episodes of confusion, right-sided weakness, expressive aphasia and difficulty getting thoughts and words out and diffuse weakness. Otherwise, no fevers or chills, no myalgias or arthralgias. No rash. No headache or weight change. No psychiatric complaints. No genitourinary c omplaints. Physical Examination: Vital Signs: Blood pressure 117/76, pulse 84, respiratory rate 16, temperature 97.2, oxygen saturati on 99% on oxygen by nasal cannula 5 L flow rate. Weight 107 pounds, height 5 feet 3 inches, BMI 19. General: Ms. Proctor is resting comfortably in bed in ICU, receiving IV fluids and a unit of packed red blood cells. She just returned from upper GI evaluation and she is just mildly sedated. Otherwi se, she is oriented to person, place, time, and situation. She has expressive or receptive aphasias. In terms of her general examination, there is good air movement. She has no edema or cyanosis in t he upper or lower extremities. Neurological: Cranial nerves show no deficits on 2 through 12. She has symmetric face with full vis ual dorantes to confrontation. Pupils are round and reactive to light and accommodation. Extraocular movements are intact. Motor examination in the upper and lower extremities, she has no focal deficit s, strength is 4+ out of 5 proximally and distally. Sensory examination, stocking-glove loss, light touch, temperature in the arms and legs. Reflexes depressed in the upper and lower extremities. Grain Roaster rdination is slow, but intact in upper and lower extremities. Gait still requires mod assist with e therapist. Laboratory Studies: Complete blood count with differential shows white blood cell count 17.7 with 93 .2% neutrophils, hemoglobin 7.5, hematocrit 21.8, and platelets 459. INR 0.97. Chemistries: Sodium 145, potassium 4.2, chloride 116, carbon dioxide 20, BUN 33, and creatinine 1.09. Calcium is low to 8.0. Glucose 140. Assessment: Ms. Proctor is an 83-year-old patient with possible transient ischemic attacks. The att acks appear to affect her right arm and leg along with face and she does have also right severe carot id bulb stenosis. That stenosis does not easily explain the patient's clinical symptoms as it is on the opposite side. In any event, she is having episodes consistent with transient ischemic attack, b ut she has had a significant upper gastrointestinal bleed and is now off antiplatelet medication. Plan: 1.Once stable enough hemodynamically and there is a reduced bleeding risk, she may restart aspirin 8 1 mg enteric-coated daily. 2.Continue high-dose statin for stroke risk reduction. 3.Continue with aggressive management of hypertension for reducing stroke risk. Otherwise, once she is discharged to the floor and home, she may follow up with Dr. Cullen in clinic in 1 month. FERDINAND Voice ID: [id number] Report ID: [id number]
--- NOTE | 2018-09-18 20:07 | CON ---
Date of Consultation: 09/18/2018 History Of Present Illness: This is a case of an 83-year-old patient, admitted to the hospital with episode of weakness. Admitted to the hospital. During the process found to have hematemesis. Her u pper endoscopy today shows a duodenal ulcer with bleeding that was cauterized by Dr. Ross. This is a large ulceration in the posterior region. He could not use the clips. He just cauterized that area. The patient does not recall any prior episode of that. She has been on blood thinners includi ng Plavix. The patient currently in the ICU. Allergies: PHENERGAN. Past Medical History: MIs, TIAs, thyroid problems. Past Surgical History: Include hysterectomy, thyroidectomy and pacemaker. She states some intraabdo lakisha abscess for which she has a midline incision infraumbilical all the way down to the symphysis p ubis. Details of that are unknown. Social History: She does not smoke. She does not drink alcohol. Family History: Noncontributory. Review of Systems: Unable to be obtained. The patient just finished an endoscopy and she want to rest. Physical Examination: General: The patient still awake and alert, although she wants to rest, said she has been through a l ot she is saying, but she is calm, with no distress. HEENT: Pupils anicteric. Chest: Clear bilateral breath sounds. Abdomen: Soft and depressible. No guarding or rebound. Rectal: Deferred. Extremity: Good capillary refill. Laboratory Data: Blood work, hemoglobin of 7.5 with platelets of 459. Currently she is under blood transfusion. INR 0.97, chloride is 116. Assessment: This is an 83-year-old patient with multiple medical problems, including myocardial infa rction, is on anticoagulation, found to have an ulcer. I just talked to Dr. Ross. He was able t o cauterize the area, not to see a bleed anymore but once again clips were not done. I discussed the case with Dr. Ross and he agree with me. I believe this patient is a candidate to be transferred to a high level of care to offer her the options of angio embolism. We cannot provide that service in this institution. It was done by the interventional radiologist. I am contacting the primary doc tor right now, to let him know the importance of that treatment since surgery during this conditions may not be the best for her. Currently, she is on a blood transfusion. Dr. Ross just finished t he endoscopy. He did not see her bleeding any more but recurrence of this are high in the place, whi ch she can receive an angiogram embolization may be better for her. Showing the recent data and stud ies about how that technique may prove better than surgery in some situations. MOISÉS/FANY Voice ID: [id number] Report ID: [id number]
[2018-09-18] MEDS: ATORVASTATIN 40 MG TAB PO SCH (21:56)
--- NOTE | 2018-09-18 22:04 | OP ---
Surgeon: Andrea Ross MD Procedure To Be Performed: Esophagogastroduodenoscopy. Performing Physician: Andrea Ross M.D. Indication For Procedure: Hematemesis, upper GI bleed. Plan For Anesthesia: Monitored anesthesia care. Complexity: Very high. The patient is high risk due to active GI bleed. Other comorbidities includ ing 90% carotid stenosis, however, this procedure has been undertaken on an emergent basis due to the patient's bleeding. The patient and family both are agreeable and willing to take the risk. Technique: After obtaining informed consent from the patient explaining risks and complications whic h include, but are not limited to bleeding, infection, perforation, and anesthesia complication, the patient was placed in a left lateral position and sedation was given. From then on, the scope was ad vanced through the mouth and carefully guided eventually up till the second portion of the duodenum. Active bleeding was seen and treated as detailed below. After the completion of examination, scope and equipment were withdrawn and procedure was terminated in a safe manner. Findings: Esophagus: In the distal esophagus, a small hiatal hernia with some LA grade A esophagiti s was seen. Stomach: As soon as the scope entered the stomach, there was significant amount of darby ined material, mostly coffee-ground, with some clots that was visualized. Significant time was spent with washing and suctioning. We actually switched the scopes from the EGD to a colon scope with a m uch wider suction channel, so that that can be aided. After significant washing and suctioning, no g ross gastric lesion was seen that could explain the bleeding. Subsequently, attention was directed t o the duodenum. At the pylorus, there was a large clot seen, that was actually occupying the whole d uodenal bowel. With significant suctioning, this was able to be eventually cleared and removed. In the distal bulb at an acute angle, a large cratered ulcer was seen with a large area of large visible vessel. First, we went further into the second part of the duodenum. No other lesion was seen exce pt for just old blood. Subsequently, the scope was withdrawn and attention was focused to this bleed ing duodenal ulcer. I first injected 5 cc of epinephrine around the ulcer margins, which stopped the bleeding and I could see the vessel in detail. Initially, clips were attempted. However, the ulcer margin was quite wide and due to the angle, clips only could be placed at the edges. Therefore, sub sequently, I used a gold probe and was able to cauterized the vessel with good success rate and coagu lation. We spent 5 minutes more just to ensure there was no recurrence of bleeding and then withdrew the scope. Complications: None. Tolerance To Anesthesia: Excellent. Postoperative Diagnoses: Hiatal hernia, esophagitis, gastritis, and large duodenal ulcer with bleedi ng, status post treatment. Plan: Continue PPI and octreotide drip. Keep n.p.o. for today. Given the nature of the lesion and the risk of rebleeding, I would need surgical evaluation as a backup in case the patient rebleeds. B ecause in that case we would probably not be able to stop the bleeding again. Depending on surgery's comfort level and the patient's comorbidities, the patient may also need to be transferred to a high er level of care, where they may have also access to interventional radiology as an alternative. Minerva s was discussed with the patient and the family and Dr. Saunders as well. They all understand and agree with the plan of care. US/MODL Voice ID: [id number] Report ID: [id number]
[2018-09-18 22:06] LABS: Hematocrit 22.1 % (36.0-45.0)
[2018-09-19 02:25] LABS: Urine Appearance CLEAR; Urine Bilirubin NEGATIVE (NEG); Urine Blood NEGATIVE (NEG); Urine Color YELLOW; Urine Glucose NEGATIVE (NEG); Urine Protein NEGATIVE (NEG); Urine Urobilinogen 0.2 mg/dL (0.2-1.0)
[2018-09-19] MEDS: PANTOPRAZOLE INJ 80 MG in NA CHLORIDE 0.9% 250 ML IV SCH ×2 (02:32→14:36)
[2018-09-19] MEDS: NA CHLORIDE 0.9% 1,000 ML IV SCH ×3 (02:32→22:59)
[2018-09-19 02:33] LABS: Urine Microscopic Reflex NO UMIC
[2018-09-19] MEDS: THYROID 30 MG TAB PO SCH (06:22)
[2018-09-19] MEDS: OCTREOTIDE 500 MCG in NA CHLORIDE 0.9% 500 ML IV SCH ×2 (06:22→14:36)
[2018-09-19 06:33] LABS: Absolute Lymphocytes (CBC) 2.2 K/uL (0.7-4.9); Absolute Monocytes 0.7 K/uL (0.1-1.3); Absolute Neutrophil 9.3 K/uL (1.8-8.0); Basophils % 0.4 % (0-1.3); Eosinophils % 2.2 % (0-4.4); Hematocrit 20.4 % (36.0-45.0); Lymphocytes % 17.3 % (15.3-44.8); MPV 8.5 fL (7.6-11.3); Monocytes % 5.7 % (3.3-12.3); RBC Red Blood Cell Count 2.18 M/uL (3.86-4.86)
[2018-09-19 06:40] LABS: Potassium 3.5 mmol/L (3.5-5.1)
[2018-09-19] MEDS ORDERED: AMLODIPINE 10 MG TAB PO SCH (09:00)
[2018-09-19] MEDS ORDERED: METOPROLOL TAR 25 MG TAB PO SCH (09:00)
[2018-09-19] MEDS ORDERED: LOSARTAN POTASSIUM 50 MG TABLET PO SCH (09:00)
[2018-09-19] MEDS ORDERED: NA CHLORIDE 0.9% 250 ML ONE (09:08)
[2018-09-19] MEDS: FLUOXETINE 10 MG CAP PO SCH (09:46)
[2018-09-19 15:28] LABS: Hematocrit 28.5 % (36.0-45.0)
--- NOTE | 2018-09-19 15:33 | P.PN ---
Subjective Date of Service: 09/19/18 Chief Complaint: recurrent fall, possible TIA, melena Patient seen and examined at bedside with RN. Chart reviewed. Case discussed with GI. Currently awaiting transfer to a higher level of care for embolization by IR for bleeding duodenal ulcer. Status post EGD with GI consistent with large duodenal ulcer that we use bleeding which was cauterized. No complaints to offer overnight. States that she feels much better than before. No melena or hematemesis noted Review of Systems 10-point ROS is otherwise unremarkable Physical Examination - Vital Signs Temperature: 97.3 F Blood Pressure: 163/69 Pulse: 77 Respirations: 18 Pulse Ox (%): 99 - Physical Exam General: Alert, In no apparent distress HEENT: Atraumatic, PERRLA, EOMI Neck: Supple, JVD not distended Respiratory: Clear to auscultation bilaterally, Normal air movement Cardiovascular: Regular rate/rhythm, Normal S1 S2 Gastrointestinal: Normal bowel sounds, No tenderness Musculoskeletal: No tenderness Integumentary: No rashes Neurological: Normal speech, Normal tone, Normal affect Lymphatics: No axilla or inguinal lymphadenopathy - Studies Medications List Reviewed: Yes Assessment And Plan - Current Problems (Diagnosis) (1) GIB (gastrointestinal bleeding) Current Visit: Yes Status: Acute Plan: GI bleeding most likely secondary to duodenal ulcer -patient status post EGD with GI -duodenal ulcer with cauterization. 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 -The patient was declined by . [place] vascular surgeon, recommending outpatient followup. -No intervention at this time for carotid stenosis Qualifiers: Laterality: right Qualified Code(s): I65.21 - Occlusion and stenosis of right carotid artery (3) CKD (chronic kidney disease) Current Visit: Yes Status: Chronic Qualifiers: Chronic kidney disease stage: stage 3 (moderate) Qualified Code(s): N18.3 - Chronic kidney disease, stage 3 (moderate) (4) Recurrent falls Current Visit: Yes Status: Acute (5) TIA (transient ischemic attack) Current Visit: Yes Status: Acute - Plan Awaiting clinical improvement at this time. Continue with IV Protonix and octreotide drip here in the ICU. Monitor H&H q. 4-6 hr. Will transfuse for less than 7. Patient awaiting a bed at the tertiary [facility] center for embolization by IR for her bleeding duodenal ulcer. Discharge Plan: Other Plan to discharge in: Greater than 2 days - Code Status/Comfort Care Code Status Assessed: Yes Critical Care: Yes
[2018-09-19] MEDS: ATORVASTATIN 40 MG TAB PO SCH (21:50)
[2018-09-20] MEDS: PANTOPRAZOLE INJ 80 MG in NA CHLORIDE 0.9% 250 ML IV SCH ×3 (00:20→20:38)
[2018-09-20] MEDS: OCTREOTIDE 500 MCG in NA CHLORIDE 0.9% 500 ML IV SCH ×3 (01:49→23:10)
[2018-09-20] MEDS: NA CHLORIDE 0.9% 1,000 ML IV SCH ×3 (01:50→23:10)
[2018-09-20] MEDS: HYDRALAZINE HCL 10 MG TABLET PO PRN (03:37)
[2018-09-20 05:45] LABS: Absolute Lymphocytes (CBC) 1.6 K/uL (0.7-4.9); Absolute Monocytes 0.6 K/uL (0.1-1.3); Absolute Neutrophil 7.6 K/uL (1.8-8.0); Basophils % 1.2 % (0-1.3); Eosinophils % 5.8 % (0-4.4); Hematocrit 28.4 % (36.0-45.0); Lymphocytes % 14.8 % (15.3-44.8); MPV 8.2 fL (7.6-11.3); Monocytes % 5.7 % (3.3-12.3)
[2018-09-20 05:58] LABS: Potassium 3.1 mmol/L (3.5-5.1)
[2018-09-20] MEDS: THYROID 30 MG TAB PO SCH (06:04)
[2018-09-20] MEDS ORDERED: POTASSIUM CL SA 10 MEQ TAB PO ONE (06:37)
[2018-09-20] MEDS: FLUOXETINE 10 MG CAP PO SCH (08:42)
--- NOTE | 2018-09-20 11:55 | P.PN ---
Subjective Date of Service: 09/20/18 Chief Complaint: recurrent fall, possible TIA, melena Patient seen and examined at bedside with RN. Chart reviewed. Case discussed with GI. Currently awaiting transfer to a higher level of care for embolization by IR for bleeding duodenal ulcer. Status post EGD with GI consistent with large duodenal ulcer that we use bleeding which was cauterized. No complaints to offer overnight. States that she feels much better than before. No melena or hematemesis noted Review of Systems 10-point ROS is otherwise unremarkable Physical Examination - Vital Signs Temperature: 97.6 F Blood Pressure: 155/57 Pulse: 77 Respirations: 17 Pulse Ox (%): 98 - Physical Exam General: Alert, In no apparent distress HEENT: Atraumatic, PERRLA, EOMI Neck: Supple, JVD not distended Respiratory: Clear to auscultation bilaterally, Normal air movement Cardiovascular: Regular rate/rhythm, Normal S1 S2 Gastrointestinal: Normal bowel sounds, No tenderness Musculoskeletal: No tenderness Integumentary: No rashes Neurological: Normal speech, Normal tone, Normal affect Lymphatics: No axilla or inguinal lymphadenopathy - Studies Medications List Reviewed: Yes Assessment And Plan - Current Problems (Diagnosis) (1) GIB (gastrointestinal bleeding) Current Visit: Yes Status: Acute Plan: GI bleeding most likely secondary to duodenal ulcer -patient status post EGD with GI -duodenal ulcer with cauterization. -on Protonix and octreotide drip at this time -recommendations are for patient to get embolization with IR -H&H q.4 hr. 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 -The patient was declined by . [place] vascular surgeon, recommending outpatient followup. -No intervention at this time for carotid stenosis Qualifiers: Laterality: right Qualified Code(s): I65.21 - Occlusion and stenosis of right carotid artery (3) CKD (chronic kidney disease) Current Visit: Yes Status: Chronic Qualifiers: Chronic kidney disease stage: stage 3 (moderate) Qualified Code(s): N18.3 - Chronic kidney disease, stage 3 (moderate) (4) Recurrent falls Current Visit: Yes Status: Acute Plan: Recurrent falls at the house most likely secondary to chronic anemia worsens generalized weak -fall precautions given -PT consulted at this time (5) TIA (transient ischemic attack) Current Visit: Yes Status: Acute Plan: TIA most likely secondary to chronic anemia versus generalized weakness -head CT negative at this time -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 Continue with IV Protonix and octreotide drip here in the ICU. Monitor H&H q. 4-6 hr. Will transfuse for less than 7. Patient awaiting a bed at the tertiary care center for embolization by IR for her bleeding duodenal ulcer. Discharge Plan: Other Plan to discharge in: Greater than 2 days - Code Status/Comfort Care Code Status Assessed: Yes Critical Care: Yes
[2018-09-20] MEDS: ATORVASTATIN 40 MG TAB PO SCH (23:11)
[2018-09-21] MEDS: NA CHLORIDE 0.9% 1,000 ML IV SCH (04:59)
[2018-09-21] MEDS: PANTOPRAZOLE INJ 80 MG in NA CHLORIDE 0.9% 250 ML IV SCH (05:38)
[2018-09-21] MEDS: THYROID 30 MG TAB PO SCH (05:42)
[2018-09-21] MEDS: FLUOXETINE 10 MG CAP PO SCH (08:18)
[2018-09-21] MEDS: HYDRALAZINE HCL 10 MG TABLET PO PRN (08:19)
[2018-09-21] MEDS: OCTREOTIDE 500 MCG in NA CHLORIDE 0.9% 500 ML IV SCH (08:19)
[2018-09-21 10:39] LABS: Absolute Lymphocytes (CBC) 0.9 K/uL (0.7-4.9); Absolute Monocytes 0.7 K/uL (0.1-1.3); Absolute Neutrophil 6.5 K/uL (1.8-8.0); Basophils % 1.1 % (0-1.3); Eosinophils % 5.5 % (0-4.4); Hematocrit 26.1 % (36.0-45.0); Lymphocytes % 10.8 % (15.3-44.8); MPV 8.1 fL (7.6-11.3); Monocytes % 7.6 % (3.3-12.3); RBC Red Blood Cell Count 2.82 M/uL (3.86-4.86)
[2018-09-21 10:48] LABS: Albumin 2.6 g/dL (3.4-5.0); Bilirubin Total 0.6 mg/dL (0.2-1.0); Potassium 3.3 mmol/L (3.5-5.1); Protein, Total 5.3 g/dL (6.4-8.2)
[2018-09-21] MEDS ORDERED: POTASSIUM CL SA 10 MEQ TAB PO ONE ×2 (10:53→19:56)
[2018-09-21] MEDS ORDERED: Magnesium Sulfate 2gm IVPB 2 G/50 ML BAG IV ONE (11:05)
[2018-09-21] MEDS ORDERED: DOCUSATE NA 100 MG CAP PO PRN (11:15)
[2018-09-21] MEDS: SUCRALFATE 1 GM TABLET PO SCH ×3 (11:36→20:35)
--- NOTE | 2018-09-21 11:59 | P.PN ---
Subjective Date of Service: 09/19/18 Chief Complaint: hematochesia, duodenal ulcer Subjective: Improving Review of Systems Respiratory: Shortness of Breath (no) Cardiovascular: Chest Pain (no) Gastrointestinal: Vomiting (no), Abdominal Pain (no), Distention Physical Examination - Vital Signs Temperature: 97.6 F Blood Pressure: 162/51 Pulse: 80 Respirations: 19 Pulse Ox (%): 99 - Physical Exam General: Alert, In no apparent distress, Oriented x3, Cooperative HEENT: PERRLA, EOMI Neck: Supple Respiratory: Normal air movement Cardiovascular: No edema Gastrointestinal: Soft and benign, No rebound, No guarding - Studies Medications List Reviewed: Yes Assessment And Plan - Plan Pt alert, comfortable, no distress, no hematemesis cont NPO pending transfer to [place] for possible angio embolization h/h monitoring blood transfusion
--- NOTE | 2018-09-21 12:02 | P.PN ---
Subjective Date of Service: 09/20/18 Chief Complaint: hematochesia, duodenal ulcer Subjective: Improving, Doing well Review of Systems General: Fever (nnnnno), Chills (no), Sweats (no) ENT: Unremarkable Respiratory: Unremarkable Cardiovascular: Unremarkable Gastrointestinal: Nausea (no), Vomiting (no), Abdominal Pain (no), No Distention , Constipation (o), Melena (no), Hematochezia (o), As per HPI Genitourinary: Dysuria (no) Physical Examination - Vital Signs Temperature: 97.6 F Blood Pressure: 162/51 Pulse: 80 Respirations: 19 Pulse Ox (%): 99 - Physical Exam General: Alert, In no apparent distress, Oriented x3, Oriented x1 HEENT: PERRLA, EOMI Neck: Supple Cardiovascular: No edema Gastrointestinal: Soft and benign, No rebound Musculoskeletal: No erythema, No tenderness, No warmth Integumentary: No rashes - Studies h/h reviewed Medications List Reviewed: Yes Assessment And Plan - Plan Pt stillalert, comfortable, no distress, no hematemesis cont NPO/water Still pending transfer to [place] h/h monitoring blood transfusion as needed
--- NOTE | 2018-09-21 12:05 | P.PN ---
Subjective Date of Service: 09/21/18 Chief Complaint: hematochesia, duodenal ulcer Subjective: Tolerating diet, Improving Review of Systems 10-point ROS is otherwise unremarkable Gastrointestinal: Nausea (no), Vomiting (no), Abdominal Pain (no), No Distention , Hematochezia (no), As per HPI Physical Examination - Vital Signs Temperature: 97.6 F Blood Pressure: 162/51 Pulse: 80 Respirations: 19 Pulse Ox (%): 99 - Physical Exam General: Alert, In no apparent distress, Oriented x3 HEENT: PERRLA, EOMI Neck: Supple Cardiovascular: No edema Gastrointestinal: Soft and benign, No rebound, No guarding Musculoskeletal: No erythema, No tenderness, No warmth Integumentary: No rashes - Studies h/h improving oob clears still [place] transfer pending Medications List Reviewed: Yes Assessment And Plan - Plan alert, comfortable, no hematemesis cont NPO/water Still pending transfer to [place] h/h monitoring blood transfusion as needed
[2018-09-21] MEDS: AMLODIPINE 10 MG TAB PO SCH (12:07)
[2018-09-21] MEDS: METOPROLOL TAR 25 MG TAB PO SCH (12:10)
--- NOTE | 2018-09-21 13:54 | P.PN ---
Subjective Date of Service: 09/21/18 Chief Complaint: hematochesia, duodenal ulcer Patient seen and examined at bedside with RN. Chart reviewed. Case discussed with GI. Currently awaiting transfer to a higher level of care for embolization by IR for bleeding duodenal ulcer. Status post EGD with GI consistent with large duodenal ulcer that was cauterized. No complaints to offer overnight. States that she feels much better than before. No melena or hematemesis noted. Hgb Stable at this time Review of Systems 10-point ROS is otherwise unremarkable Physical Examination - Vital Signs Temperature: 97.6 F Blood Pressure: 148/53 Pulse: 78 Respirations: 19 Pulse Ox (%): 99 - Physical Exam General: Alert, In no apparent distress HEENT: Atraumatic, PERRLA, EOMI Neck: Supple, JVD not distended Respiratory: Clear to auscultation bilaterally, Normal air movement Cardiovascular: Regular rate/rhythm, Normal S1 S2 Gastrointestinal: Normal bowel sounds, No tenderness Musculoskeletal: No tenderness Integumentary: No rashes Neurological: Normal speech, Normal tone, Normal affect Lymphatics: No axilla or inguinal lymphadenopathy - Studies Medications List Reviewed: Yes Assessment And Plan - Current Problems (Diagnosis) (1) GIB (gastrointestinal bleeding) Current Visit: Yes Status: Acute Plan: GI bleeding most likely secondary to duodenal ulcer -patient status post EGD with GI -duodenal ulcer with cauterization. -H/H stable today. No melena or Hematemsis noted. -will switch to IV protonix and add Carafate -recommendations are for patient to get embolization with IR when accepted at the tertiary center. -H&H q.4 hr. 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 -Per GI can resume ASA in 09/25 and plavix after 4 weeks. Will f.u with cardiology -The patient was declined by . [facility]' vascular surgeon, recommending outpatient followup -No intervention at this time for carotid stenosis Qualifiers: Laterality: right Qualified Code(s): I65.21 - Occlusion and stenosis of right carotid artery (3) CKD (chronic kidney disease) Current Visit: Yes Status: Chronic Qualifiers: Chronic kidney disease stage: stage 3 (moderate) Qualified Code(s): N18.3 - Chronic kidney disease, stage 3 (moderate) (4) Recurrent falls Current Visit: Yes Status: Acute Plan: Recurrent falls at the house most likely secondary to chronic anemia worsens generalized weak -fall precautions given -PT consulted at this time (5) TIA (transient ischemic attack) Current Visit: Yes Status: Acute Plan: TIA most likely secondary to chronic anemia versus generalized weakness -head CT negative at this time -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 Switched to IV protonix now. Monitor H&H q. 4-6 hr. Will transfuse for less than 7. Patient awaiting a bed at the [facility] for embolization by IR for her bleeding duodenal ulcer. Will transfer to the Floor at this time. Discharge Plan: Home Plan to discharge in: Greater than 2 days - Code Status/Comfort Care Code Status Assessed: Yes Critical Care: No
[2018-09-21 19:11] LABS: Magnesium 2.2 mg/dL (1.8-2.4); Potassium 3.9 mmol/L (3.5-5.1)
[2018-09-21] MEDS: PANTOPRAZOLE 40 MG INJ IVP SCH (20:34)
[2018-09-21] MEDS: DOCUSATE NA 100 MG CAP PO SCH (20:35)
[2018-09-21] MEDS: ATORVASTATIN 40 MG TAB PO SCH (20:35)
[2018-09-21] MEDS ORDERED: PANTOPRAZOLE 40 MG INJ IVP SCH (21:00)
[2018-09-21] MEDS ORDERED: ENSURE CLEAR 200 ML CAN PO SCH (21:00)
[2018-09-22] MEDS: THYROID 30 MG TAB PO SCH (05:10)
[2018-09-22 06:14] LABS: Magnesium 2.2 mg/dL (1.8-2.4)
[2018-09-22] MEDS: AMLODIPINE 10 MG TAB PO SCH (08:32)
[2018-09-22] MEDS: PANTOPRAZOLE 40 MG INJ IVP SCH ×2 (08:32→21:06)
[2018-09-22] MEDS: SUCRALFATE 1 GM TABLET PO SCH ×4 (08:32→21:06)
[2018-09-22] MEDS: DOCUSATE NA 100 MG CAP PO SCH ×2 (08:32→21:06)
[2018-09-22] MEDS: FLUOXETINE 10 MG CAP PO SCH (08:32)
[2018-09-22] MEDS: METOPROLOL TAR 25 MG TAB PO SCH (08:33)
[2018-09-22] MEDS: SODIUM CHLORIDE 0.9% 10ML INJ IV PRN (08:34)
--- NOTE | 2018-09-22 17:24 | P.PN ---
Subjective Date of Service: 09/22/18 Chief Complaint: hematochesia, duodenal ulcer Patient seen and examined at bedside with RN. Chart reviewed. Case discussed with GI. Status post EGD with GI consistent with large duodenal ulcer that was cauterized. No complaints to offer overnight. States that she feels much better than before. No melena or hematemesis noted. Hgb Stable at this time Review of Systems 10-point ROS is otherwise unremarkable Physical Examination - Vital Signs Temperature: 98.4 F Blood Pressure: 149/63 Pulse: 67 Respirations: 18 Pulse Ox (%): 98 - Physical Exam General: Alert, In no apparent distress HEENT: Atraumatic, PERRLA, EOMI Neck: Supple, JVD not distended Respiratory: Clear to auscultation bilaterally, Normal air movement Cardiovascular: Regular rate/rhythm, Normal S1 S2 Gastrointestinal: Normal bowel sounds, No tenderness Musculoskeletal: No tenderness Integumentary: No rashes Neurological: Normal speech, Normal tone, Normal affect Lymphatics: No axilla or inguinal lymphadenopathy - Studies Medications List Reviewed: Yes Assessment And Plan - Current Problems (Diagnosis) (1) GIB (gastrointestinal bleeding) Current Visit: Yes Status: Acute Plan: GI bleeding most likely secondary to duodenal ulcer -patient status post EGD with GI -duodenal ulcer with cauterization. -H/H stable today. No melena or Hematemsis noted. -will switch to IV protonix and add Carafate -recommendations are for patient to get embolization with IR if H/H drops or pt becomes unstable. -H&H q.4 hr. 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 -Per GI can resume ASA in 09/25 and plavix after 4 weeks. Will f.u with cardiology -The patient was declined by [facility]'s vascular surgeon, recommending outpatient followup -No intervention at this time for carotid stenosis Qualifiers: Laterality: right Qualified Code(s): I65.21 - Occlusion and stenosis of right carotid artery (3) CKD (chronic kidney disease) Current Visit: Yes Status: Chronic Qualifiers: Chronic kidney disease stage: stage 3 (moderate) Qualified Code(s): N18.3 - Chronic kidney disease, stage 3 (moderate) (4) Recurrent falls Current Visit: Yes Status: Acute Plan: Recurrent falls at the house most likely secondary to chronic anemia worsens generalized weak -fall precautions given -PT consulted at this time (5) TIA (transient ischemic attack) Current Visit: Yes Status: Acute Plan: TIA most likely secondary to chronic anemia versus generalized weakness -head CT negative at this time -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 Switched to IV protonix now. Monitor H&H q. 4-6 hr. Will transfuse for less than 7. Discharge Plan: Home Plan to discharge in: Greater than 2 days - Code Status/Comfort Care Code Status Assessed: Yes Critical Care: No
[2018-09-22] MEDS: ATORVASTATIN 40 MG TAB PO SCH (21:06)
[2018-09-23 04:18] LABS: Absolute Lymphocytes (CBC) 1.4 K/uL (0.7-4.9); Absolute Monocytes 0.6 K/uL (0.1-1.3); Absolute Neutrophil 3.9 K/uL (1.8-8.0); Basophils % 0.8 % (0-1.3); Hematocrit 26.8 % (36.0-45.0); MPV 8.4 fL (7.6-11.3); Monocytes % 8.8 % (3.3-12.3); RBC Red Blood Cell Count 2.84 M/uL (3.86-4.86)
[2018-09-23 04:33] LABS: Albumin 2.6 g/dL (3.4-5.0); Bilirubin Total 0.6 mg/dL (0.2-1.0); Potassium 4.2 mmol/L (3.5-5.1); Protein, Total 5.7 g/dL (6.4-8.2)
[2018-09-23] MEDS: THYROID 30 MG TAB PO SCH (05:30)
[2018-09-23] MEDS: METOPROLOL TAR 25 MG TAB PO SCH (08:28)
[2018-09-23] MEDS: SUCRALFATE 1 GM TABLET PO SCH ×4 (08:29→20:58)
[2018-09-23] MEDS: AMLODIPINE 10 MG TAB PO SCH (08:29)
[2018-09-23] MEDS: SODIUM CHLORIDE 0.9% 10ML INJ IV PRN (08:30)
[2018-09-23] MEDS: PANTOPRAZOLE 40 MG INJ IVP SCH ×2 (08:30→20:57)
[2018-09-23] MEDS: DOCUSATE NA 100 MG CAP PO SCH ×2 (08:30→20:58)
[2018-09-23] MEDS: FLUOXETINE 10 MG CAP PO SCH (10:14)
--- NOTE | 2018-09-23 15:38 | P.PN ---
Subjective Date of Service: 09/23/18 Chief Complaint: hematochesia, duodenal ulcer Patient seen and examined at bedside with RN. Chart reviewed. Case discussed with GI. Status post EGD with GI consistent with large duodenal ulcer that was cauterized. No complaints to offer overnight. States that she feels much better than before. No melena or hematemesis noted. Hgb Stable at this time Review of Systems 10-point ROS is otherwise unremarkable Physical Examination - Vital Signs Temperature: 97.9 F Blood Pressure: 144/68 Pulse: 62 Respirations: 16 Pulse Ox (%): 98 - Physical Exam General: Alert, In no apparent distress HEENT: Atraumatic, PERRLA, EOMI Neck: Supple, JVD not distended Respiratory: Clear to auscultation bilaterally, Normal air movement Cardiovascular: Regular rate/rhythm, Normal S1 S2 Gastrointestinal: Normal bowel sounds, No tenderness Musculoskeletal: No tenderness Integumentary: No rashes Neurological: Normal speech, Normal tone, Normal affect Lymphatics: No axilla or inguinal lymphadenopathy - Studies Medications List Reviewed: Yes Assessment And Plan - Current Problems (Diagnosis) (1) GIB (gastrointestinal bleeding) Current Visit: Yes Status: Acute Plan: GI bleeding most likely secondary to duodenal ulcer -patient status post EGD with GI -duodenal ulcer with cauterization. -H/H stable today. No melena or Hematemsis noted. -Now on IV protonix and add Carafate -recommendations are for patient to get embolization with IR if H/H drops or pt becomes unstable. -H&H q.4 hr. 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 -Per GI can resume ASA on 09/25 and plavix after 4 weeks. Will f.u with cardiology -The patient was declined by [facility]'s vascular surgeon, recommending outpatient followup -No intervention at this time for carotid stenosis Qualifiers: Laterality: right Qualified Code(s): I65.21 - Occlusion and stenosis of right carotid artery (3) CKD (chronic kidney disease) Current Visit: Yes Status: Chronic Qualifiers: Chronic kidney disease stage: stage 3 (moderate) Qualified Code(s): N18.3 - Chronic kidney disease, stage 3 (moderate) (4) Recurrent falls Current Visit: Yes Status: Acute Plan: Recurrent falls at the house most likely secondary to chronic anemia worsens generalized weak -fall precautions given -PT consulted at this time (5) TIA (transient ischemic attack) Current Visit: Yes Status: Acute Plan: TIA most likely secondary to chronic anemia versus generalized weakness -head CT negative at this time -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 Switched to IV protonix now. Monitor H&H q. 4-6 hr. Will transfuse for less than 7. Discharge Plan: Home Plan to discharge in: 48 Hours - Code Status/Comfort Care Code Status Assessed: Yes Critical Care: No
[2018-09-23] MEDS: ATORVASTATIN 40 MG TAB PO SCH (20:58)
[2018-09-24 05:31] LABS: Absolute Lymphocytes (CBC) 1.4 K/uL (0.7-4.9); Absolute Monocytes 0.5 K/uL (0.1-1.3); Absolute Neutrophil 3.4 K/uL (1.8-8.0); Eosinophils % 10.6 % (0-4.4); Hematocrit 25.9 % (36.0-45.0); Lymphocytes % 23.3 % (15.3-44.8); MPV 8.4 fL (7.6-11.3); Monocytes % 8.7 % (3.3-12.3); RBC Red Blood Cell Count 2.81 M/uL (3.86-4.86)
[2018-09-24 05:45] LABS: Albumin 2.7 g/dL (3.4-5.0); Bilirubin Total 0.5 mg/dL (0.2-1.0); Potassium 3.5 mmol/L (3.5-5.1); Protein, Total 5.5 g/dL (6.4-8.2)
[2018-09-24] MEDS ORDERED: POTASSIUM CL SA 10 MEQ TAB PO ONE (05:51)
[2018-09-24] MEDS: THYROID 30 MG TAB PO SCH (06:10)
[2018-09-24] MEDS: DOCUSATE NA 100 MG CAP PO SCH ×2 (08:58→20:53)
[2018-09-24] MEDS: SUCRALFATE 1 GM TABLET PO SCH ×4 (08:58→20:53)
[2018-09-24] MEDS: AMLODIPINE 10 MG TAB PO SCH (08:58)
[2018-09-24] MEDS: PANTOPRAZOLE 40 MG INJ IVP SCH ×2 (08:58→20:53)
[2018-09-24] MEDS: METOPROLOL TAR 25 MG TAB PO SCH (08:59)
[2018-09-24] MEDS: FLUOXETINE 10 MG CAP PO SCH (09:00)
--- NOTE | 2018-09-24 15:29 | P.PN ---
Subjective Date of Service: 09/24/18 Chief Complaint: hematochesia, duodenal ulcer Patient seen and examined at bedside with RN. Chart reviewed. Case discussed with GI. Status post EGD with GI consistent with large duodenal ulcer that was cauterized. No complaints to offer overnight. States that she feels much better than before. No melena or hematemesis noted. Hgb Stable at this time. Review of Systems 10-point ROS is otherwise unremarkable Physical Examination - Vital Signs Temperature: 98.3 F Blood Pressure: 108/46 Pulse: 61 Respirations: 16 Pulse Ox (%): 100 - Physical Exam General: Alert, In no apparent distress HEENT: Atraumatic, PERRLA, EOMI Neck: Supple, JVD not distended Respiratory: Clear to auscultation bilaterally, Normal air movement Cardiovascular: Regular rate/rhythm, Normal S1 S2 Gastrointestinal: Normal bowel sounds, No tenderness Musculoskeletal: No tenderness Integumentary: No rashes Neurological: Normal speech, Normal tone, Normal affect Lymphatics: No axilla or inguinal lymphadenopathy - Studies Medications List Reviewed: Yes Assessment And Plan - Current Problems (Diagnosis) (1) GIB (gastrointestinal bleeding) Current Visit: Yes Status: Acute Plan: GI bleeding most likely secondary to duodenal ulcer -patient status post EGD with GI -duodenal ulcer with cauterization. -H/H stable today. No melena or Hematemsis noted. -Now on IV protonix and add Carafate -General Surgery consulted. Appreciated Reccs -Per Surgery reccs Advanced Diet to FLD today and GI soft on friday. -pt can be restarted back on ASA and monitor for next 48hrs. -If hgb steady patient can then be discharged home after a RBC scan. If hgb drop may consider transfer to tertiary care for Embolization. -H&H daily. 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 -Per GI can resume ASA on 09/25/18 and plavix after 4 weeks. Will f.u with cardiology -The patient was declined by [facility] vascular surgeon, recommending outpatient followup -No intervention at this time for carotid stenosis Qualifiers: Laterality: right Qualified Code(s): I65.21 - Occlusion and stenosis of right carotid artery (3) CKD (chronic kidney disease) Current Visit: Yes Status: Chronic Qualifiers: Chronic kidney disease stage: stage 3 (moderate) Qualified Code(s): N18.3 - Chronic kidney disease, stage 3 (moderate) (4) Recurrent falls Current Visit: Yes Status: Acute Plan: Recurrent falls at the house most likely secondary to chronic anemia worsens generalized weak -fall precautions given -PT consulted at this time (5) TIA (transient ischemic attack) Current Visit: Yes Status: Acute Plan: TIA most likely secondary to chronic anemia versus generalized weakness -head CT negative at this time -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 Switched to IV protonix now. Per Surgery reccs Advanced Diet to FLD today and GI soft on friday. pt can be restarted back on ASA and monitor for next 48hrs. If hgb steady patient can then be discharged home after a RBC scan. If hgb drop may consider transfer to tertiary care for Embolization.
[2018-09-24] MEDS: ATORVASTATIN 40 MG TAB PO SCH (20:53)
[2018-09-25] MEDS: THYROID 30 MG TAB PO SCH (05:00)
[2018-09-25 06:36] LABS: Absolute Lymphocytes (CBC) 1.3 K/uL (0.7-4.9); Absolute Monocytes 0.6 K/uL (0.1-1.3); Absolute Neutrophil 4.3 K/uL (1.8-8.0); Eosinophils % 9.6 % (0-4.4); Hematocrit 25.8 % (36.0-45.0); Lymphocytes % 18.4 % (15.3-44.8); MPV 8.1 fL (7.6-11.3); RBC Red Blood Cell Count 2.78 M/uL (3.86-4.86)
[2018-09-25 06:57] LABS: Albumin 2.6 g/dL (3.4-5.0); Bilirubin Total 0.4 mg/dL (0.2-1.0); Potassium 4.1 mmol/L (3.5-5.1); Protein, Total 5.6 g/dL (6.4-8.2)
[2018-09-25] MEDS: SUCRALFATE 1 GM TABLET PO SCH ×4 (08:25→21:52)
[2018-09-25] MEDS: AMLODIPINE 10 MG TAB PO SCH (08:25)
[2018-09-25] MEDS: DOCUSATE NA 100 MG CAP PO SCH ×2 (08:25→21:52)
[2018-09-25] MEDS: PANTOPRAZOLE 40 MG INJ IVP SCH ×2 (08:26→21:52)
[2018-09-25] MEDS: METOPROLOL TAR 25 MG TAB PO SCH (08:26)
[2018-09-25] MEDS: FLUOXETINE 10 MG CAP PO SCH (08:26)
--- NOTE | 2018-09-25 14:01 | P.PN ---
Subjective Date of Service: 09/25/18 Chief Complaint: hematochesia, duodenal ulcer Subjective: No C/O voiced, Tolerating diet, Ambulating, Improving Patient doing well this morning. Has tolerated fluids without n/v/d. Stated that she still has mild black tar like stool. Otherwise no other new complaint. Will advance diet tomorrow and continue to monitor H/H. <GalejosiahchapisFarzad - Last Filed: 09/25/18 13:57> Date of Service: 09/25/18 <Binu Davidson - Last Filed: 09/25/18 15:03> Review of Systems General: Unremarkable Eyes: Unremarkable ENT: Unremarkable Respiratory: Unremarkable Cardiovascular: Unremarkable Gastrointestinal: Unremarkable Genitourinary: Unremarkable Musculoskeletal: Unremarkable Integumentary: Unremarkable Neurological: Unremarkable <GalemikaylaFarzad - Last Filed: 09/25/18 13:57> Physical Examination - Vital Signs Temperature: 98.4 F Blood Pressure: 130/61 Pulse: 64 Respirations: 16 Pulse Ox (%): 97 - Physical Exam General: Alert, In no apparent distress, Oriented x3, Cooperative HEENT: Normocephalic, PERRLA, Mucous membr. moist/pink Neck: Supple, No Thyromegaly Respiratory: Clear to auscultation bilaterally, Normal air movement Cardiovascular: No edema, Normal pulses, Regular rate/rhythm, Normal S1 S2, Abnormal S3, No gallops, No rubs, No murmurs Capillary refill: <2 Seconds Gastrointestinal: Normal bowel sounds, Soft and benign, Non-distended, No tenderness, No masses, No rebound, No guarding Musculoskeletal: No clubbing, No swelling, No contractures, No erythema, No tenderness, No warmth Integumentary: No rashes, No breakdown, No significant lesion, No tenderness/ swelling, No erythema, No warmth, No cyanosis Neurological: Normal speech, Normal strength at 5/5 x4 extr, Normal tone, Sensation intact, Cranial nerves 3-12 intact, Normal reflexes 2+, Normal affect - Studies Medications List Reviewed: Yes <GalejosiahSocorro nationFarzad - Last Filed: 09/25/18 13:57> Assessment & Plan - Problems (Diagnosis) (1) Anemia Current Visit: Yes Status: Acute Plan: Monitoring H/H Qualifiers: Anemia type: unspecified type Qualified Code(s): D64.9 - Anemia, unspecified (2) GIB (gastrointestinal bleeding) Current Visit: Yes Status: Acute Qualifiers: GI bleed type/associated pathology: gastrojejunal ulcer Qualified Code(s): 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 Patient is stable. H/H is also stable. No signs of bleeding. Will restart ASA as recommended by GI. If no bleeding then will advance diet to GI soft tomorrow. If stable after that then can consider discharge. Plavix can be restarted in 4 weeks. This is to be further addressed and monitored closely. Dr. Saunders to take over care tomorrow. Time Spent Managing Pts Care (In Minutes): 55 <Binu Davidson - Last Filed: 09/25/18 15:03>
[2018-09-25] MEDS: ATORVASTATIN 40 MG TAB PO SCH (21:52)
[2018-09-26] MEDS: THYROID 30 MG TAB PO SCH (05:32)
[2018-09-26 06:56] LABS: Absolute Lymphocytes (CBC) 1.8 K/uL (0.7-4.9); Absolute Monocytes 0.6 K/uL (0.1-1.3); Basophils % 1.4 % (0-1.3); Eosinophils % 9.9 % (0-4.4); Hematocrit 25.4 % (36.0-45.0); Lymphocytes % 24.6 % (15.3-44.8); MPV 8.1 fL (7.6-11.3); Monocytes % 8.2 % (3.3-12.3); RBC Red Blood Cell Count 2.71 M/uL (3.86-4.86)
[2018-09-26 07:41] LABS: Magnesium 1.9 mg/dL (1.8-2.4); Potassium 4.3 mmol/L (3.5-5.1)
[2018-09-26] MEDS: SUCRALFATE 1 GM TABLET PO SCH ×4 (08:27→22:56)
[2018-09-26] MEDS: FLUOXETINE 10 MG CAP PO SCH (09:49)
[2018-09-26] MEDS: DOCUSATE NA 100 MG CAP PO SCH ×2 (09:50→22:57)
[2018-09-26] MEDS: AMLODIPINE 10 MG TAB PO SCH (09:50)
[2018-09-26] MEDS: METOPROLOL TAR 25 MG TAB PO SCH (09:50)
[2018-09-26] MEDS: PANTOPRAZOLE 40 MG INJ IVP SCH ×2 (09:51→22:57)
[2018-09-26] MEDS: ASPIRIN EC 81 MG TAB PO SCH (09:51)
--- NOTE | 2018-09-26 19:11 | PN ---
Date of Progress Note: 09/26/2018 History: The patient seen and examined. Chart reviewed and case discussed with RN. The patient den ies any further GI bleed. Scheduled for PillCam, Friday. Code Status: Full. Medications: List reviewed. Physical Examination: Vital Signs: Temperature 97, heart rate 63, blood pressure 110/70, respirations 18, O2 99% on room a ir. General: Awake, alert, oriented x3. Elderly female, not in any acute distress. Appears fatigued, f rail. BMI 18. CV: S1, S2. Peripheral pulses present. No murmurs. Respiratory: Moving air well bilaterally. No wheezing. Gastrointestinal: Abdomen is soft, nontender, nondistended. Positive bowel sounds. Extremities: No clubbing, cyanosis, or edema. Neurologic: Nonfocal. Cranial nerves 2-12 intact grossly. Speech is normal. Laboratory Data: Sodium 140, potassium 4.3, chloride 106, CO2 28, BUN 14, creatinine 1.23, glucose 9 0, magnesium 1.9, calcium 8.2. WBC 7.1, H and H 8.7 and 22.2, platelets 146, neutrophils 57%. Assessment And Plan: An 83-year-old female with: 1.Acute blood loss anemia. We will continue to monitor hemoglobin and hematocrit and transfuse as n eeded secondary to gastrointestinal bleed. 2.Acute gastrointestinal bleed secondary to gastrojejunal ulcer, status post esophagogastroduodenosc opy and cauterization. Unable to have clipping done. The patient was attempted to be transferred fo r embolization, however, was unable to be transferred due to multiple reasons. 3.Chronic kidney disease stage 3. We will continue to monitor creatinine, currently normalized. We will avoid NSAIDs. 4.Deep venous thrombosis prophylaxis with SCDs. 5.Aspirin has been restarted. No further signs of bleeding. Plavix will be restarted in 4 weeks. 6.The patient has severe carotid disease, and we will need outpatient vascular or cardiothoracic viet luation. I did speak with [facility]'s vascular surgeon, Dr. Blanco, who recommended outpatient followu p. He declined inpatient transfer. 7.Recurrent falls, continue PT. 8.Transient ischemic attack. SA/MODL Voice ID: [id number] Report ID: [id number]
[2018-09-26] MEDS: ATORVASTATIN 40 MG TAB PO SCH (22:55)
[2018-09-27] MEDS: THYROID 30 MG TAB PO SCH (05:11)
[2018-09-27 06:34] LABS: Absolute Lymphocytes (CBC) 2.2 K/uL (0.7-4.9); Absolute Monocytes 0.6 K/uL (0.1-1.3); Absolute Neutrophil 3.9 K/uL (1.8-8.0); Basophils % 1.4 % (0-1.3); Hematocrit 25.6 % (36.0-45.0); Lymphocytes % 29.5 % (15.3-44.8); MPV 8.5 fL (7.6-11.3); Monocytes % 8.1 % (3.3-12.3); RBC Red Blood Cell Count 2.72 M/uL (3.86-4.86)
[2018-09-27 06:53] LABS: Magnesium 1.9 mg/dL (1.8-2.4); Potassium 3.8 mmol/L (3.5-5.1)
[2018-09-27] MEDS ORDERED: POTASSIUM CL SA 10 MEQ TAB PO ONE (08:21)
[2018-09-27] MEDS: SUCRALFATE 1 GM TABLET PO SCH ×4 (08:23→21:49)
[2018-09-27] MEDS: METOPROLOL TAR 25 MG TAB PO SCH (08:24)
[2018-09-27] MEDS: PANTOPRAZOLE 40 MG INJ IVP SCH ×2 (08:24→21:49)
[2018-09-27] MEDS: DOCUSATE NA 100 MG CAP PO SCH ×2 (08:24→21:49)
[2018-09-27] MEDS: AMLODIPINE 10 MG TAB PO SCH (08:25)
[2018-09-27] MEDS: FLUOXETINE 10 MG CAP PO SCH (08:25)
[2018-09-27] MEDS: ASPIRIN EC 81 MG TAB PO SCH (08:25)
[2018-09-27] MEDS: SODIUM CHLORIDE 0.9% 10ML INJ IV PRN (08:26)
--- NOTE | 2018-09-27 17:56 | PN ---
Subjective: The patient is seen and examined, chart reviewed and case discussed with RN. The patient did well overnight, able to get more sleep than yesterday. No significant complaints. No further blood in the stool. Medications: List reviewed. Physical Examination: Vital Signs: Temperature 98.3, heart rate 62, blood pressure 113/46, respirations 18, O2 99% on room air. General: Awake, alert, oriented x3, elderly female, frail, cachectic. BMI 18. CV: S1, S2. Peripheral pulses weak bilaterally. Respiratory: Moving air well bilaterally. No wheezing. Gastrointestinal: Abdomen is soft, nontender, nondistended. Positive bowel sounds. Extremities: No clubbing, cyanosis, or edema. Neuro: Nonfocal. Laboratory Data: Sodium 139, potassium 3.8, chloride 105, CO2 of 27, BUN 12, creatinine 1.29, glucose 93, calcium 8, magnesium 1.9. WBC 7.5, H and H 8.7 and 25.6, platelets 526. Assessment And Plan: An 83-year-old female with: 1. Acute blood loss anemia. H and H are stable secondary to gastrointestinal bleed. We will monitor and transfuse for hemoglobin less than 7. 2. Acute gastrointestinal bleed secondary to gastrojejunal ulcer, status post esophagogastroduodenoscopy and cauterization. The patient was unable to be transferred for embolization. We will continue to monitor closely and continue PPI. The patient will need repeat EGD in 4-6 weeks. 3. Chronic kidney disease, stage 3. Creatinine is normalized. Avoid NSAIDs. Monitor creatinine level. 4. Recurrent falls. Continue PT. 5. Transient ischemic attack. 6. Severe carotid artery stenosis. Aspirin has been safely resumed. H and H have not made any further drops. Plavix currently still on hold. The patient will need to wait approximately 4 weeks prior to restarting Plavix. The patient was on Plavix before admission. The patient will need to follow up with Dr. James at [facility] for further workup of her carotid stenosis. 7. Deep vein thrombosis prophylaxis with sequential compression devices. Plan: Will benefit from PillCam study. If workup is negative, may be discharged home. /FANY Voice ID: [id number] Report ID: [id number] COLT
[2018-09-27] MEDS: ATORVASTATIN 40 MG TAB PO SCH (21:49)
[2018-09-28] MEDS: THYROID 30 MG TAB PO SCH (06:26)
[2018-09-28 06:37] LABS: Absolute Lymphocytes (CBC) 1.7 K/uL (0.7-4.9); Absolute Monocytes 0.6 K/uL (0.1-1.3); Absolute Neutrophil 4.5 K/uL (1.8-8.0); Eosinophils % 9.7 % (0-4.4); Hematocrit 25.8 % (36.0-45.0); Lymphocytes % 21.8 % (15.3-44.8); MPV 8.2 fL (7.6-11.3); Monocytes % 8.3 % (3.3-12.3); RBC Red Blood Cell Count 2.74 M/uL (3.86-4.86)
[2018-09-28 07:02] LABS: Potassium 4.4 mmol/L (3.5-5.1)
[2018-09-28] MEDS: FLUOXETINE 10 MG CAP PO SCH (08:12)
[2018-09-28] MEDS: SUCRALFATE 1 GM TABLET PO SCH ×3 (08:12→16:26)
[2018-09-28] MEDS: AMLODIPINE 10 MG TAB PO SCH (08:12)
[2018-09-28] MEDS: DOCUSATE NA 100 MG CAP PO SCH (08:13)
[2018-09-28] MEDS: PANTOPRAZOLE 40 MG INJ IVP SCH (08:13)
[2018-09-28] MEDS: ASPIRIN EC 81 MG TAB PO SCH (08:13)
[2018-09-28] MEDS: METOPROLOL TAR 25 MG TAB PO SCH (08:13)
[2018-09-28] MEDS: SODIUM CHLORIDE 0.9% 10ML INJ IV PRN (08:14)
[2018-09-28 08:21] VITALS: O2SAT 96
--- NOTE | 2018-09-28 10:44 | P.DS ---
Admission Date: 09/18/18 Discharge Date: 09/28/18 Primary Care Provider: Cardiology-Dr. Yuan Disposition: DC HOME/HOME HEALTH CARE Discharge Condition: GOOD Reason for Admission: hematochesia, duodenal ulcer Consultations: Surgery-Dr. Silvestre GI-Dr. Ross Neurology-Dr. Cullen Procedures: CT head: COMPARISON: None TECHNIQUE: Computed axial tomography of the head was obtained. IV contrast was not requested. All CT scans are performed using dose optimization technique as appropriate and may include automated exposure control or mA/KV adjustment according to patient size. FINDINGS: An intracranial bleed is not seen . The ventricles are normal in caliber. Vascular calcifications No extra-axial fluid collection is noted. Moderate to marked low-density areas within periventricular, deep and subcortical white matter likely represent ischemic changes secondary to small vessel disease. Fluid within the sinuses/ mastoids is not seen. IMPRESSION: No acute intracranial abnormality is seen. Neck CT angio: COMPARISON: None TECHNIQUE: 50 cc Isovue 370 was administered intravenously. 3D MIP reconstruction performed All CT scans are performed using dose optimization technique as appropriate and may include automated exposure control or mA/KV adjustment according to patient size. FINDINGS: Severe calcified plaque is present within the right carotid bulb. . Moderate plaque is present within the right external carotid artery. Mild plaque is present within common carotid and left internal carotid arteries. The left vertebral artery is dominant. Distal left vertebral artery is calcified. IMPRESSION: Severe stenosis right carotid bulb. Brain CT angio: COMPARISON: None TECHNIQUE: CT angiogram of the head was obtained. 3D MIPS reconstruction performed. All CT scans are performed using dose optimization technique as appropriate and may include automated exposure control or mA/KV adjustment according to patient size. FINDINGS: Coarse calcifications are present within the distal internal carotid arteries bilaterally. The basilar, anterior cerebral, middle cerebral and posterior cerebral arteries are normal caliber. An aneurysm is not seen. A significant stenosis is not noted. IMPRESSION: A significant stenosis/ occlusion is not seen EEG: Normal EEG Carotid Doppler: FINDINGS: Normal high resistance waveforms are noted in both external carotid arteries. The common carotid arteries and internal carotid arteries show normal low resistance waveforms. Patient shows very pronounced calcified plaquing change in the right carotid bulb extending into the proximal portions of the right internal carotid artery. Significant luminal narrowing is evident on visual inspection. Calcified plaquing in the left carotid bulb is present without significant luminal narrowing. No dissection is identified. Right internal carotid artery peak systolic velocity reaches 213 cm/second with a 53 cm/second end-diastolic velocity. A 2.5 right-side ICA/CCA ratio was obtained. Right external carotid velocity reached 285 cm/second although an external stenosis is generally not clinically significant. Left-sided carotid peak velocity reaches 117 cm/ seconds. A 1.1 left ICA/ CCA ratio was obtained. Left external carotid velocity is elevated at 222 cm/second. Antegrade flow seen in both vertebral arteries. Velocity values and ratios were recorded and are retained in the patient's imaging records. IMPRESSION: Significant densely calcified plaquing changes in the right carotid bulb and proximal ICA. Stenosis is estimated at 80- 90%. Left-sided carotid bulb calcified plaquing changes not causing significant stenosis. Bilateral external carotid stenoses. External carotid stenoses are generally not clinically significant. ECHO: EF 51% LEFT VENTRICULAR WALL MOTION: NORMAL DOPPLER/COLOR FLOW: TRACE TRICUSPID REGURGITATION. COMMENTS: NORMAL LEFT VENTRICULAR SIZE AND FUNCTION. NO WALL MOTION ABNORMALITY. MITRAL ANNULAR CALCIFICATION. AORTIC SCLEROSIS. Procedure: Findings: Esophagus: In the distal esophagus, a small hiatal hernia with some LA grade A esophagitis was seen. Stomach: As soon as the scope entered the stomach, there was significant amount of retained material, mostly coffee-ground , with some clots that was visualized. Significant time was spent with washing and suctioning. We actually switched the scopes from the EGD to a colon scope with a much wider suction channel, so that that can be aided. After significant washing and suctioning, no gross gastric lesion was seen that could explain the bleeding. Subsequently, attention was directed to the duodenum. At the pylorus, there was a large clot seen, that was actually occupying the whole duodenal bowel. With significant suctioning, this was able to be eventually cleared and removed. In the distal bulb at an acute angle, a large cratered ulcer was seen with a large area of large visible vessel. First, we went further into the second part of the duodenum. No other lesion was seen except for just old blood. Subsequently, the scope was withdrawn and attention was focused to this bleeding duodenal ulcer. I first injected 5 cc of epinephrine around the ulcer margins, which stopped the bleeding and I could see the vessel in detail. Initially, clips were attempted. However, the ulcer margin was quite wide and due to the angle, clips only could be placed at the edges. Therefore, subsequently, I used a gold probe and was able to cauterized the vessel with good success rate and coagulation. We spent 5 minutes more just to ensure there was no recurrence of bleeding and then withdrew the scope. Complications: None. Tolerance To Anesthesia: Excellent. Postoperative Diagnoses: Hiatal hernia, esophagitis, gastritis, and large duodenal ulcer with bleeding, status post treatment. Medical Problem List: Acute blood-loss secondary to acute GI bleed related to gastrojejunal ulcer status post EGD and cauterization complicated with hiatal hernia, esophagitis and gastritis Chronic renal disease, stage III Right-sided hemiparesis, expressive aphasia and falls secondary to TIA with noted severe carotid stenosis to the right carotid bulb estimated at 80-90% Hypertension Hyperlipidemia Hypothyroidism Depression Brief History of Present Illness: 83-year-old female with history of TIA and hypertension reported falling multiple times. When the patient was evaluated by EMS, patient found to have right-sided candice paresis and expressive aphasia. This resolved before evaluation in the emergency room. Patient also reported melena. In the ER severe stenosis to the right carotid bulb and anemia were noted. Patient was admitted for further evaluation and treatment. Hospital Course: Patient presented with acute blood loss secondary to GI bleed. During the course of her stay patient was evaluated by GI and required blood transfusion with EGD evaluation. Patient found to have gas showed vaginal ulcer. Cauterization was required. Patient also found to have hiatal hernia, esophagitis and gastritis. During the course of her stay there was a possibility of transfer for interventional radiology and embolization of the ulcer if she continued to have anemia. This was not required. Patient remained stable during the course of her stay. Patient was restarted on aspirin and Plavix for TIA present upon admission. Plavix has been held due to her GI bleeding. At discharge she will continue only with aspirin 81 mg daily for her TIA. Plavix can be restarted in 4 weeks after evaluation by GI. Patient will need a follow up with GI within 1-2 weeks. Patient will likely require pill camera and colonoscopy for further evaluation. Patient may also require repeat EGD to monitor stability of ulcer. Recommend to recheck lab-CBC in 1-2 weeks to monitor progress. Recommend to follow up with her PCP to closely monitor. At discharge patient will also continue with Protonix 40 mg 1 pill twice daily and Carafate 1 g with meals. Recommend to recheck lab-CBC in 1 -2 weeks to follow her progress. Patient also presented with right-sided hemipareses, expressive aphasia and fall. This was secondary to TIA. This had resolved prior to admission. Patient found to have severe carotid stenosis to the right carotid bulb estimated at 80-90%. Patient previously on aspirin and Plavix was initiated. Plavix was discontinued due to GI bleed. Transfer for CV surgery evaluation was attempted but CV surgery recommended this to be further evaluated as an outpatient. Patient seen and evaluated by neurology. Neurology recommended aspirin and Plavix but due to her GI bleed, medications were held until GI bleed was under control. Once GI bleed was under control, aspirin was initiated. At discharge she will continue with aspirin 81 mg daily. Plavix can be considered to be restarted at 4 weeks. Patient will need to be seen by GI and neurology as an outpatient to further consider. Patient will continue with home health and physical therapy at discharge. Recommended follow up with neurology in 1-2 weeks to follow up this hospitalization. Patient will continue with multi vitamin daily. Recommend to recheck lab-CBC in 1-2 weeks to follow her progress. Patient with hypertension. Medications adjusted during her stay. Losartan was discontinued due to her chronic renal disease. At discharge patient will continue with Norvasc 10 mg daily, metoprolol 25 mg daily and hydralazine 25 mg 1 pill twice daily. Hydralazine will be a new medication for the patient. Recommend to maintain blood pressures less 150/80. Further adjustment can be done by her PCP. Patient with hyperlipidemia. Lipitor was added due to her TIA. Patient will continue with medication-Lipitor 40 mg daily. Patient with hypothyroidism. Patient will continue with her medication-Lenox Thyroid 90 mg daily. Patient with depression. Patient will continue with her medication-Prozac 10 mg daily. Patient with chronic renal disease, stage III. Losartan was discontinued during her stay. Recommend to follow up with nephrology in 1-2 weeks to monitor progress. Recommend no further use of nonsteroidal anti- inflammatories. Future medications will need to be renally dosed. Recommend to recheck lab-BMP in 1-2 weeks to monitor her progress. Vital Signs/Physical Exam: Temp Pulse Resp BP Pulse Ox 98.3 F 67 16 174/72 H 96 09/28/18 08:00 09/28/18 08:13 09/28/18 08:00 09/28/18 08:13 09/28/18 08:00 General: Alert, In no apparent distress, Oriented x3, Cooperative HEENT: Atraumatic Neck: Supple Respiratory: Clear to auscultation bilaterally, Normal air movement Cardiovascular: Normal pulses, Regular rate/rhythm Gastrointestinal: Normal bowel sounds, Soft and benign, Non-distended, No masses , No rebound, No guarding Musculoskeletal: No erythema, No tenderness, No warmth Integumentary: No tenderness/swelling, No erythema, No warmth, No cyanosis Neurological: Normal speech, Normal strength at 5/5 x4 extr, Normal tone, Normal affect Laboratory Data at Discharge: WBC 7.7 K/uL (4.3-10.9) 09/28/18 06:06 Hgb 8.9 g/dL (12.0-15.0) L 09/28/18 06:06 Hct 25.8 % (36.0-45.0) L 09/28/18 06:06 Plt Count 533 K/uL (152-406) H 09/28/18 06:06 PT 11.5 SECONDS (9.5-12.5) 09/16/18 19:02 INR 0.97 09/16/18 19:02 APTT 26.7 SECONDS (24.3-36.9) 09/16/18 19:02 Sodium 138 mmol/L (136-145) 09/28/18 06:06 Potassium 4.4 mmol/L (3.5-5.1) 09/28/18 06:06 BUN 10 mg/dL (7-18) 09/28/18 06:06 Creatinine 1.32 mg/dL (0.55-1.3) H 09/28/18 06:06 Glucose 99 mg/dL (74-106) 09/28/18 06:06 Magnesium 2.0 mg/dL (1.8-2.4) 09/28/18 06:06 Total Bilirubin 0.4 mg/dL (0.2-1.0) 09/25/18 06:13 AST 12 U/L (15-37) L 09/25/18 06:13 ALT 11 U/L (12-78) L 09/25/18 06:13 Alkaline Phosphatase 62 U/L (45-117) 09/25/18 06:13 Home Medications: Amlodipine [Norvasc*] 10 mg PO DAILY 09/18/18 Aspirin [Aspirin EC 81 MG] 1 tab PO DAILY 09/18/18 B Complex with Vitamin C [B-Complex Plus Vitamin C] 1 tab PO DAILY 09/18/18 Fluoxetine HCl [Prozac*] 1 cap PO DAILY 09/18/18 Metoprolol Tartrate [Lopressor*] 25 mg PO DAILY 09/18/18 Multivits Min/Iron/FA/Herb#186 [Hair, Skin and Nails Caplet] 1 tab PO DAILY 03/01 Thyroid,Pork [Thyroid] 1 tab PO DAILY 09/18/18 Tramadol HCl [Ultram] 1 tab PO DAILYPRN PRN 09/18/18 Atorvastatin Calcium [Lipitor] 40 mg PO BEDTIME #30 tab 09/28/18 Docusate [Colace Cap*] 100 mg PO BID #60 cap 09/28/18 Hydralazine HCl 25 mg PO BID #60 tablet 09/28/18 Pantoprazole [Protonix Tab] 40 mg PO BID #60 tab 09/28/18 Sucralfate [Carafate*] 1 gm PO ACHS #90 tab 09/28/18 New Medications: Atorvastatin Calcium [Lipitor] 40 mg PO BEDTIME #30 tab Docusate [Colace Cap*] 100 mg PO BID #60 cap Hydralazine HCl 25 mg PO BID #60 tablet Pantoprazole [Protonix Tab] 40 mg PO BID #60 tab Sucralfate [Carafate*] 1 gm PO ACHS #90 tab Patient Discharge Instructions: 1. Patient will follow up with her PCP in 1 week to follow up this hospitalization. Patient will continue with home health and physical therapy at discharge. 2. Patient presented with acute blood loss secondary to GI bleed. During the course of her stay patient was evaluated by GI and required blood transfusion with EGD evaluation. Patient found to have gas showed vaginal ulcer. Cauterization was required. Patient also found to have hiatal hernia, esophagitis and gastritis. During the course of her stay there was a possibility of transfer for interventional radiology and embolization of the ulcer if she continued to have anemia. This was not required. Patient remained stable during the course of her stay. Patient was restarted on aspirin and Plavix for TIA present upon admission. Plavix has been held due to her GI bleeding. At discharge she will continue only with aspirin 81 mg daily for her TIA. Plavix can be restarted in 4 weeks after evaluation by GI. Patient will need a follow up with GI within 1-2 weeks. Patient will likely require pill camera and colonoscopy for further evaluation. Patient may also require repeat EGD to monitor stability of ulcer. Recommend to recheck lab-CBC in 1-2 weeks to monitor progress. Recommend to follow up with her PCP to closely monitor. At discharge patient will also continue with Protonix 40 mg 1 pill twice daily and Carafate 1 g with meals. Recommend to recheck lab-CBC in 1-2 weeks to follow her progress. 3. Patient also presented with right-sided hemipareses, expressive aphasia and fall. This was secondary to TIA. This had resolved prior to admission. Patient found to have severe carotid stenosis to the right carotid bulb estimated at 80-90%. Patient previously on aspirin and Plavix was initiated. Plavix was discontinued due to GI bleed. Transfer for CV surgery evaluation was attempted but CV surgery recommended this to be further evaluated as an outpatient. Patient seen and evaluated by neurology. Neurology recommended aspirin and Plavix but due to her GI bleed, medications were held until GI bleed was under control. Once GI bleed was under control, aspirin was initiated. At discharge she will continue with aspirin 81 mg daily. Plavix can be considered to be restarted at 4 weeks. Patient will need to be seen by GI and neurology as an outpatient to further consider. Patient will continue with home health and physical therapy at discharge. Recommended follow up with neurology in 1-2 weeks to follow up this hospitalization. Patient will continue with multi vitamin daily. Recommend to recheck lab-CBC in 1-2 weeks to follow her progress. 4. Patient with hypertension. Medications adjusted during her stay. Losartan was discontinued due to her chronic renal disease. At discharge patient will continue with Norvasc 10 mg daily, metoprolol 25 mg daily and hydralazine 25 mg 1 pill twice daily. Hydralazine will be a new medication for the patient. Recommend to maintain blood pressures less 150/80. Further adjustment can be done by her PCP. 5. Patient with hyperlipidemia. Lipitor was added due to her TIA. Patient will continue with medication-Lipitor 40 mg daily. 6. Patient with hypothyroidism. Patient will continue with her medication-Lenox Thyroid 90 mg daily. 7. Patient with depression. Patient will continue with her medication- Prozac 10 mg daily. 8. Patient with chronic renal disease, stage III. Losartan was discontinued during her stay. Recommend to follow up with nephrology in 1-2 weeks to monitor progress. Recommend no further use of nonsteroidal anti-inflammatories. Future medications will need to be renally dosed. Recommend to recheck lab-BMP in 1-2 weeks to monitor her progress. Diet: Renal Activity: Fall precautions Time spent managing pt's care (in minutes): 55
[2018-09-28 12:43] VITALS: BP 133/56; TEMP 97.9
== END 2018-09-28 16:49 | disposition home health service (06) | DRG 378 ==
LOC: ER 18:24 → OBSVTOIN 23:41 → ERHOLD 23:41 → INTOOBSV 23:41 → 2ND 09-17 00:42 → OBSVTOIN 09-18 08:27 → 3RD-ICU 09-18 09:15 → 4TH 09-21 16:56
PROVIDERS: ADMIT Internal Medicine; ATTEND Family Medicine
PROC: 30233N1 Transfusion of Nonautologous Red Blood Cells into Peripheral Vein, Percutaneous Approach (ICD-10-PCS; 2018-09-18)
PROC: 0D598ZZ Destruction of Duodenum, Via Natural or Artificial Opening Endoscopic (ICD-10-PCS; principal; 2018-09-18 11:00)
DX: K26.4 Chronic or unspecified duodenal ulcer with hemorrhage (principal); D62 Acute posthemorrhagic anemia; G45.9 Transient cerebral ischemic attack, unspecified; G81.91 Hemiplegia, unspecified affecting right dominant side; N17.9 Acute kidney failure, unspecified; K44.9 Diaphragmatic hernia without obstruction or gangrene; K20.9 Esophagitis, unspecified; K29.70 Gastritis, unspecified, without bleeding; E78.5 Hyperlipidemia, unspecified; E03.9 Hypothyroidism, unspecified; F32.9 Major depressive disorder, single episode, unspecified; I12.9 Hypertensive chronic kidney disease with stage 1 through stage 4 chronic kidney disease, or unspecified chronic kidney disease; N18.3 Chronic kidney disease, stage 3 (moderate); I69.820 Aphasia following other cerebrovascular disease; Z91.81 History of falling; I65.21 Occlusion and stenosis of right carotid artery; Z95.0 Presence of cardiac pacemaker; M54.16 Radiculopathy, lumbar region
CPT/HCPCS: 36415; 36430; 70450; 70496; 70498; 70544; 70553; 71045; 80048; 80053; 81003; 82274; 82962; 83735; 84132; 85014; 85018; 85025; 85610; 85730; 86850; 86900; 86901; 93005; 93306; 93880; 95816; 97112; 97116; 97124; 97163; 97166; 97530; 99285; A9577; C9113; J0171; J2354; J2405; J2704; J2765; J3475; J7030; P9016; Q9967